=== PATIENT | female | born 1970 | race Caucasian/White ===

== ENCOUNTER 2019-07-21 11:39 | Emergency (ER) | payer MEDICAID, SELFPAY ==
[2019-07-21 11:40] VITALS: BP 168/97; PULSE 95; RESP 18; TEMP 36.5; O2SAT 100; BMI 35.3
--- NOTE | 2019-07-21 11:58 | US_ITS ---
STUDY: ULTRASOUND OF THE FEMALE PELVIS - COMPLETE REASON FOR EXAM: Female, 49 years old. Vaginal bleeding LMP: July 10, 2019. TECHNIQUE: Transvaginal TECHNICAL QUALITY: Adequate. COMPARISON: None. FINDINGS: The uterus is anteverted and is in a midline position. The uterus measures 8.4 cm x 5.7 cm x 5.0 cm. Normal uterine cervix. The endometrium measures 9 mm in thickness, and is hyperechoic. There is no demonstrated endometrial mass. There is heterogeneous appearance of the endometrium. A 9 mm x 5 mm x 6 mm echogenic region is seen within the myometrium. This may represent a small fibroid. I.U.D. - The patient does not have an I.U.D. The right ovary is visualized. The right ovary measures 3.8 cm x 1.5 cm x 2.4 cm. There is no right ovarian cyst or ovarian mass. There is no visualized right adnexal mass or complex lesion. There is normal arterial and normal venous vascularity. The left ovary is visualized. The left ovary measures 2.3 cm x 2 cm x 1.8 cm. There is no left ovarian cyst or ovarian mass. There is no visualized left adnexal mass or complex lesion. There is normal arterial and normal venous vascularity. There is no fluid in the cul-de-sac. Polycystic ovary disease: No. US/Transvaginal Non- IMPRESSION: Heterogeneous appearance of the uterine myometrium suggestive of fibroid change. 9 mm x 5 mm x 6 mm focal echogenic region is seen within the myometrium suggestive of a small fibroid. Electronically Signed: Darrel Pittman, at 12:53 EDT , Service support ,
--- NOTE | 2019-07-21 11:59 | ED.DCSUM_ITS ---
History of Present Illness Chief Complaint: Vag Bleeding Informant: Patient Onset: Weeks Context: Gradual Onset Current Severity: Moderate Maximum Severity: Moderate Narrative: Patient presents secondary to vaginal bleeding. She states she had a normal menstrual cycle that started a week or so ago. She bled normally for 4 days and then stopped for a day or 2. She then started spotting and then has had heavy bleeding since that time with clots. She states at worst she is changing her tampon every hour. She feels bloated and has some back pain. She has had a prior tubal ligation. She states her last Pap test was within the last several months. - Past Medical History (1) Hypertension Status: Chronic (2) Cardiac murmur Status: Chronic Past Medical History - Allergies and Home Meds Allergies/Adverse Reactions: Allergies No Known Allergies Allergy (Verified 07/21/19 11:40) Primary Care Physician: Chente Tapia MD [STAFF PHYSICIAN] - Doctors: [facility] RESIDENTIAL PEST CONTROL TECHNICIAN Prior records reviewed: Yes Smoking Status: Current some day smoker Review of Systems General: Denies: Chills, Fever Eyes: Denies: Visual changes - bilaterally ENT: Denies: Bilateral ear pain Cardiovascular: Denies: Chest pain Respiratory: Denies: Dyspnea, Cough Gastrointestinal: Reports: Abdominal pain. Denies: Nausea, Vomiting, Diarrhea Genitourinary: Denies: Dysuria Musculoskeletal: Reports: Back pain. Denies: Swelling, Extremity Pain Skin: Denies: Rash Neurological: Denies: Headache Hematologic: Denies: Easy bruising, Easy bleeding Allergy: Denies: Uticaria Physical Exam Vital Signs/Narrative: Vital Signs Temp Pulse Resp BP Pulse Ox 07/21/19 11:40 97.7 F L 95 18 168/97 H 100 Inital Vital Signs reviewed: Yes General: Well nourished, Well developed Head: Normocephalic Eyes: Perrl ENT: Moist mucous membranes Neck: Supple Cardiovascular: Regular rate, Regular rhythm Respiratory: No distress, CTA bilaterally Abdomen: Soft, Tender - Mild lower abdominal tenderness. No guarding or rebound., Hypoactive bowel sounds. Negative for: Guarding, Rebound tenderness Extremities: Nontender Skin: Normal color Neurological: Alert, Oriented x3 Psychological: Normal affect Diagnostic/Tx/Re-eval Impressions Transvaginal US 07/21/19 11:58 IMPRESSION: Heterogeneous appearance of the uterine myometrium suggestive of fibroid change. 9 mm x 5 mm x 6 mm focal echogenic region is seen within the myometrium suggestive of a small fibroid. Electronically Signed: Darrel Pittman, at 12:53 EDT , Service support , 07/21/19 11:58 Transvaginal Non- [US] Stat Laboratory Results 07/21/19 07/21/19 07/21/19 12:10 12:10 12:10 WBC 7.6 RBC 5.13 Hgb 15.3 H Hct 44.6 MCV 86.9 MCH 29.8 MCHC 34.3 RDW Std Deviation 42.3 RDW Coeff of Rosa 13.5 Plt Count 312 MPV 8.8 Immature Gran % (Auto) 0.300 Neut % (Auto) 63.4 Lymph % (Auto) 24.9 [place] % (Auto) 8.1 Eos % (Auto) 2.6 Baso % (Auto) 0.7 Absolute Neuts (auto) 4.8 Absolute Lymphs (auto) 1.90 Nucleated RBC % 0 Sodium 137 Potassium 3.9 Chloride 107 Carbon Dioxide 24.0 Anion Gap 6 BUN 10 Creatinine 0.78 Estim Creat Clear Calc 79.37 Est GFR (MDRD) Af Amer 101 Est GFR (MDRD) Non-Af 84 BUN/Creatinine Ratio 12.8 Glucose 87 Calcium 8.3 L Serum , Qual NEGATIVE - Medical Decision Making Patient was given IV fluids and Toradol. On repeat evaluation she is resting comfortably. Test results are discussed with her. I spoke with Dr. Caceres, on-call for [facility] HOSPITALIST PROGRAM DIRECTOR. I reviewed the findings of the patient's visit. Her office will call the patient the next few hours to set up a virtual visit for follow-up. Patient be given a prescription for naproxen. She is given a work note for today. ED Disposition - Plan for ED Patient: Disposition: Home or Assisted Living Diagnosis: Menorrhagia Instructions: ED Bleeding Menstrual Heavy Prescriptions: Naproxen [Naprosyn] 500 mg PO BID PRN PRN #20 tab PRN Reason: Pain Score 4-10/10 Transmission Status: Pending to [facility] Referrals: Chente Tapia MD [STAFF PHYSICIAN] - Johnie Caceres [STAFF PHYSICIAN] - 3-5 Days
[2019-07-21] MEDS: Ketorolac 30 MG/ML Syringe IV (12:08)
[2019-07-21] MEDS: 0.9% Normal Saline 1,000 ML 1000 ML IV (12:09)
[2019-07-21 12:20] LABS: Absolute Neutrophil Count 4.8 X10^3/uL (2.0-7.7); Basophil# 0.05 X10^3/uL; Basophil% 0.7 % (0-1); Eosinophils% 2.6 % (0-5); Hematocrit 44.6 % (37-47); Hemoglobin 15.3 g/dL (12.0-15.0); Lymphocyte % 24.9 % (19-41); Mean Corp Hgb Conc 34.3 g/dL (32-36); Mean Corpuscular Hgb 29.8 pg (27.0-32.0); Mean Corpuscular Volume 86.9 fL (81-99); Mean Platelet Vol. 8.8 fl (6.2-12.0); Monocyte# 0.62 X10^3/uL; Monocyte% 8.1 % (0-10); NRBC Flagged by Analyzer 0 % (0-5); Neutrophil # 4.84 X10^3/uL (2.7-7.7); Neutrophil % 63.4 % (47-70); Platelet Count 312 K/mm3 (150-450); RBC Distribution Width CV 13.5 % (11.6-14.6); RBC Distribution Width SD 42.3 fl (35.1-43.9); Red Blood Count 5.13 M/mm3 (4.2-5.4); White Blood Count 7.6 K/mm3 (4.4-11.0)
[2019-07-21 12:32] LABS: Internal QC Validated? YES +Cl - CLEAR BKGD; Pregnancy, Serum, hCG Quali. NEGATIVE Negative
[2019-07-21 12:33] LABS: Anion Gap 6 (5-15); BUN 10 mg/dL (7-18); BUN/Creat Ratio 12.8 RATIO (10-20); Calcium,Total 8.3 mg/dL (8.5-10.1); Chloride 107 mmol/L (98-107); Creatinine, Serum 0.78 mg/dL (0.55-1.02); EST Glomerular Filtration Rate 84 mL/min (>60); Est Glom Filt Rate - Afr Amer 101 mL/min (>60); Estimated Creatinine Clearance 79.37 ml/min; Glucose 87 mg/dL (74-106); Potassium 3.9 mmol/L (3.5-5.1); Sodium Level 137 mmol/L (136-145)
== END 2019-07-21 13:42 | disposition home or self-care (01) ==
PROVIDERS: Emergency Provider Emergency Medicine
DX: N92.0 Excessive and frequent menstruation with regular cycle (principal)
CPT/HCPCS: 76830; 80048; 84703; 85025; 96361; 96374; 99283; J7030; A4216

== ENCOUNTER 2021-09-20 19:52 | Emergency (ER) | payer MEDICAID, SELFPAY ==
[2021-09-20 19:52] VITALS: PULSE 142; RESP 18; TEMP 36.4; O2SAT 95; BMI 40.5
[2021-09-20] MEDS: HYDROmorphone 1 MG/ML Syringe IV (20:08)
[2021-09-20] MEDS: Ondansetron 4 MG/2 ML Vial IV (20:08)
--- NOTE | 2021-09-20 20:13 | EX.ED.VISEXT ---
HPI History of Present Illness HPI Narrative: Patient presents with a dog bite to her right wrist just prior to arrival, this was a pit bull. No other bites or injuries. Tetanus is not up-to-date Chief Complaint: Bite ROS ROS ED ROS Narrative Past medical history: none Medications: Reviewed Social history: Noncontributory Review of systems: Musculoskeletal: Right wrist dog bite as in HPI Skin: As in HPI Neurological: No weakness or paresthesias Hematologic: No easy bleeding or easy bruising PFSH PFSH Medical History no medical history Home Medications meloxicam [Mobic] 09/20/21 [History Last Taken Unknown] Allergy/AdvReac Type Severity Reaction Status Date / Time No Known Allergies Allergy Verified 09/20/21 19:55 Social History Smoking Status: Current some day smoker tobacco type: cigarettes EXAM Physical Exam Narrative Exam Narrative: Physical exam General: Patient is diaphoretic, she is very uncomfortable Head: Normocephalic, Atraumatic Neck: No C-spine tenderness Cardiovascular: Tachycardic, normal capillary refill distally Back: Nontender, Normal Inspection. Extremities: Right wrist shows a significant bite buzz, dorsally there is tissue loss of about 5 cm, volarly there are multiple lacerations presumably from the dog bite. There is flexor tendon strength in both the fingers and the wrist as well as extensor tendon however I cannot visualize the tendons fully. Distal sensation is intact and patient has capillary refill. Skin: As above Neurological: Normal strength and sensation Const Vital Signs: 09/20/21 19:52 Temperature 97.5 F L Temperature Source Temporal Pulse Rate 142 H Respiratory Rate 18 Pulse Ox 95 Oxygen Delivery Method Room Air MDM MDM MDM Narrative Medical decision making narrative: Patient received tetanus, Unasyn as well as analgesia. Due to the extensiveness of her bite I think she will need repair in the operating room. I called [facility] for transfer. Discharge Plan Triage Chief Complaint: Bite ED Provider: Ramone Zafar Dx/Rx/DC Orders Clinical Impression: Dog bite, Laceration of wrist Prescriptions: No Action meloxicam [Mobic] 15 mg Tablet RF: 0 Primary Care Provider: Care Physician,No Primary Referrals: Care Physician,No Primary [Primary Care Provider] - Disposition Disposition: Transfer to Another Type HCF
[2021-09-20] MEDS: Diphth,Pertuss(Acell),Tet Vac 0.5 ML Vial IM (20:20)
--- NOTE | 2021-09-20 20:40 | RAD_ITS ---
STUDY: XR Wrist Min 3 Views REASON FOR EXAM: Female, 51 years old. trauma pain Notes bite to right wrist from pitbull TECHNIQUE: XR Wrist Min 3 Views RIGHT COMPARISON: None FINDINGS: There are no acute findings of the visualized distal radius. There are no acute findings of the radiocarpal articulation. Normal distal radioulnar articulation. Normal carpal bones. Normal carpal articulations. There are no acute findings of the carpometacarpal articulation of the thumb. Normal second through fifth carpometacarpal articulations. There are no acute findings of the visualized metacarpal bones. Within the ulnar soft tissue, there fore bodies which may be bone and tooth fragments. There is soft tissue swelling consistent with a soft tissue injury. Comminuted fracture of the distal ulnar diaphysis. RAD/Wrist min 3 Views IMPRESSION: Within the ulnar soft tissue, there fore bodies which may be bone and tooth fragments. There is soft tissue swelling consistent with a soft tissue injury. Comminuted fracture of the distal ulnar diaphysis. Electronically Signed: Lawrence Brice MD at 21:13 EDT ,
[2021-09-20] MEDS: Lidocaine 1% (20 ml mdv) 20 ML Vial INFILT (21:27)
--- NOTE | 2021-09-20 21:28 | ED.RN ---
USED THE LIDOCAINE ON THE PT'S WOUNDS.
[2021-09-20 21:50] VITALS: BP 171/90; PULSE 74; RESP 18; O2SAT 96
[2021-09-20 22:45] VITALS: RESP 18
[2021-09-20] MEDS: oxyCODONE 5 MG Tablet PO (23:14)
[2021-09-20 23:31] VITALS: BP 168/72; PULSE 80; RESP 18; O2SAT 96
== END 2021-09-20 23:32 | disposition home or self-care (01) ==
PROVIDERS: Emergency Provider Emergency Medicine; Visit Provider Emergency Medicine
DX: S61.551A Open bite of right wrist, initial encounter (principal); S61.511A Laceration without foreign body of right wrist, initial encounter; F17.210 Nicotine dependence, cigarettes, uncomplicated; W54.0XXA Bitten by dog, initial encounter; Z23 Encounter for immunization
CPT/HCPCS: 12007; 73110; 90715; 96365; 96372; 96375; 99285; J7050; A4216; J0295; J2405

== ENCOUNTER 2021-10-31 16:45 | Emergency (ER) | payer MEDICAID, SELFPAY ==
[2021-10-31 16:46] VITALS: BP 137/120; PULSE 99; RESP 18; TEMP 36.8; O2SAT 96; BMI 33.3
--- NOTE | 2021-10-31 17:16 | ED.VIS.GI ---
HPI HPI - GI History of Present Illness Chief Complaint: Flank Pain Informant: patient Abdominal Pain/Flank Pain Onset: Today Context: Gradual Onset Timing: Continuous Quality: Sharp Location: RUQ, RLQ and Right Flank Worsened by: - (Lifting her right leg) Relieved by: Nothing Nausea/Vomiting/Emesis GI Symptom: Positive for Nausea and Vomiting Quality: Positive for Nonbilious; Negative for Blood streaks, Coffee ground or Hematemesis Diarrhea/Melena/Hematochezia GI Symptom: Negative for Diarrhea, Melena or Hematochezia Associated Symptoms Associated Symptoms: Negative for Dysuria, Frequency or Hematuria Narrative Narrative: Patient presents with right-sided abdominal pain that began today. Patient states it began gradually and has gotten worse throughout the day. Patient describes the pain as sharp. Patient states it is over the right side of her abdomen. Patient states it is worse when she lifts her right lower extremity. Patient admits to some nausea and vomiting. Patient denies any hematemesis or coffee-ground emesis. Patient denies any diarrhea, melena, or hematochezia. Patient denies any dysuria or hematuria. Patient admits to some subjective chills. [facility] Medical History (Updated 10/31/21 @ 19:[address] Lloyd Underwood DO) Cardiac murmur HTN (hypertension) Home Medications amoxicillin 500 mg-potassium clavulanate 125 mg tablet (Augmentin) 1 tab PO Q8H #21 tabs 09/20/21 [Rx Last Taken Unknown] meloxicam 15 mg tablet 09/20/21 [History Last Taken Unknown] oxycodone-acetaminophen 5 mg-325 mg tablet (Percocet) 1 tab PO Q6H PRN pain 3 days #12 tabs 09/20/21 [Rx Last Taken Unknown] hydrocodone-acetaminophen 5-325mg 5mg-325mg 1 tab PO Q6H PRN PRN Pain 3 days #10 TABLETS 10/31/21 [Rx Last Taken Unknown] Allergy/AdvReac Type Severity Reaction Status Date / Time No Known Allergies Allergy Verified 10/31/21 16:50 Surgical History (Updated 10/31/21 @ 17:[address] Lloyd Underwood DO) History of appendectomy History of section Social History Smoking Status: Current some day smoker tobacco type: cigarettes ROS ROS ED Constitutional Constitutional ED: Reports chills and subjective; Denies fever(s) Eyes Eyes: Denies blurry vision or change in vision ENT ENT ED: Denies rhinorrhea or sore throat Cardiovascular Cardiovascular: Denies chest pain or palpitations Respiratory/Chest Respiratory/Chest: Denies cough or dyspnea Gastrointestinal Gastrointestinal: Reports abdominal pain, nausea and vomiting; Denies diarrhea or melena Genitourinary Genitourinary ED: Denies dysuria or hematuria Musculoskeletal Musculoskeletal: Denies back pain or neck pain Integumentary Denies abscess or rash Neurologic Neurologic: Denies headache(s) or weakness Allergic/Immunologic Allergic/Immunologic ED: Denies mouth swelling or urticaria EXAM Physical Exam Const Vital Signs: 10/31/21 16:46 Temperature 98.2 F Temperature Source Oral Pulse Rate 99 Respiratory Rate 18 Blood Pressure 137/120 H Blood Pressure Mean 125 Pulse Ox 96 Oxygen Delivery Method Room Air Positive well nourished, well developed and obese General Appearance ED: well developed and NAD Nutritional Appearance: obese HEENT Reports moist mucous membranes Neck supple and no JVD Resp normal respiratory effort and clear to auscultation bilaterally Cardio regular rate, regular rhythm and no murmurs GI normal to inspection, nondistended, normoactive bowel sounds Palpation: soft and tender RLQ and RUQ Back/Spine General Back: CVA tenderness right Extremity normal to inspection General Extremety ED: Negative for edema or tenderness General Extremity: Negative for edema Neuro oriented x3, CN's II-XII intact bilaterally and no sensory deficits noted Sensorium / Orientation: alert Motor Exam: strength 5/5 throughout Psych mental status grossly normal Skin no rashes or lesions noted MDM MDM MDM Narrative Medical decision making narrative: Patient was given IV fluids, morphine, and Zofran. CBC shows a mild leukocytosis of 16.7. Comprehensive metabolic profile was essentially within normal limits. Urinalysis shows occult blood of 150 with 5-10 red blood cells. Leukocyte esterase was 25 with 5-10 white blood cells. There is 3+ bacteria. Urine culture was ordered. CT scan of the abdomen pelvis was obtained. There is a 4 mm right distal ureteral calculus with hydronephrosis and hydroureter. This was interpreted by the radiologist and reviewed by myself. Patient is feeling better on reevaluation. Patient was given a prescription for Mertzon. Patient was instructed to drink plenty of fluids. Patient was instructed to follow-up with her primary care physician in 5 to 7 days. Patient understood and was agreeable with the plan. All questions were answered. Lab Data Attestation: I reviewed the patient's lab results. Labs: Laboratory Results - last 24 hr 10/31/21 10/31/21 10/31/21 15:12 15:12 17:10 WBC 16.7 H RBC 5.12 Hgb 14.6 Hct 43.2 MCV 84.4 MCH 28.5 MCHC 33.8 RDW Std Deviation 41.1 RDW Coeff of Rosa 13.3 Plt Count 363 MPV 9.6 Immature Gran % (Auto) 0.400 Neut % (Auto) 80.5 H Lymph % (Auto) 11.1 L [place] % (Auto) 6.7 Eos % (Auto) 1.0 Baso % (Auto) 0.3 Absolute Neuts (auto) 13.4 H Absolute Lymphs (auto) 1.85 Nucleated RBC % 0 Sodium 136 Potassium 4.0 Chloride 105 Carbon Dioxide 25.0 Anion Gap 6 BUN 7 Creatinine 0.97 Estim Creat Clear Calc 62.44 Est GFR (MDRD) Af Amer 78 Est GFR (MDRD) Non-Af 65 BUN/Creatinine Ratio 7.2 L Glucose 120 H Calcium 9.2 Total Bilirubin 0.40 AST 29 ALT 31 Alkaline Phosphatase 95 Total Protein 7.6 Albumin 3.5 Globulin 4.1 Albumin/Globulin Ratio 0.9 Urine Color Yellow Urine Clarity Clear Urine pH 8.0 Ur Specific [place] 1.015 Urine Protein 30 H Urine Glucose (UA) Normal Urine Ketones Negative Urine Occult Blood 150 H Urine Nitrite Negative Urine Bilirubin Negative Urine Urobilinogen Normal Ur Leukocyte Esterase 25 H Urine RBC 5-10 SEEN Urine WBC 5-10 SEEN Ur Squamous Epith Cells 0-5 SEEN Urine Bacteria 3+ Urine Mucus 0 SEEN Radiography Diagnostic Testing: Clinical Impression(s) from Imaging Studies Abdomen/Pelvis CT 10/31/21 17:20 IMPRESSION: 4 mm right ureterovesical junction stone with moderate right hydronephrosis and perinephric inflammation. Steatosis and hepatomegaly. Aortic atherosclerosis with minimal infrarenal ectasia to 1.9 cm Right ovarian 1.5 cm cyst or cystic mass, possibly physiologic in a 51-year-old female. Consider 6 or 10 weeks follow-up ultrasound to ensure resolution. Electronically Signed: Noah Jeffrey MD at 18:12 EDT , Discharge Plan Triage Chief Complaint: Flank Pain Other Complaint: Abd Pain ED Provider: Lloyd Underwood Dx/Rx/DC Orders Clinical Impression: Calculus of distal right ureter, Hypertension Instructions: ED Kidney Stone w/ Colic Prescriptions: New hydrocodone-acetaminophen [hydrocodone-acetaminophen] 5-325 mg tablet 1 tab PO Q6H PRN PRN (Reason: Pain) 3 Days Qty: 10 0RF No Action meloxicam [Mobic] 15 mg Tablet oxycodone-acetaminophen [Percocet] 5-325 mg tablet 1 tab PO Q6H PRN (Reason: pain) 3 Days Qty: 12 0RF amoxicillin-pot clavulanate [Augmentin] 500-125 mg tablet 1 tab PO Q8H Qty: 21 0RF Primary Care Provider: Lobo Bajwa Referrals: Lobo Bajwa MD [Primary Care Provider] - 5-7 Days Laila Warren MD [STAFF PHYSICIAN] - 3-5 Days Care Physician,No Primary [NON-STAFF] - Disposition Disposition: Home, Self Care
--- NOTE | 2021-10-31 17:20 | CT_ITS ---
INDICATION: Right flank pain. PRIOR APPENDECTOMY EXAMINATION: CT ABDOMEN AND PELVIS WITHOUT CONTRAST - CT Abdomen And Pelvis W/O Contrast Injection TECHNIQUE: Helically acquired images were obtained of the abdomen and pelvis without oral or IV contrast. A radiation dose optimization technique was used for this scan. IV Contrast dosage and agent: None. Oral contrast: None. COMPARISON: None. FINDINGS: LOWER CHEST: Lateral left lower lobe 4.5 mm nodule. Lateral right lower lobe 3 mm nodule axial image 14. Borderline cardiomegaly. Moderate multivessel coronary atherosclerosis. LIVER: Hepatic steatosis. Hepatomegaly. No focal mass. GALLBLADDER AND BILIARY TREE: Cholecystectomy. No gallbladder distension or wall edema. No intra- or extrahepatic biliary ductal dilation. PANCREAS: No focal cystic or solid mass. SPLEEN: Normal size without focal cystic or solid mass. ADRENAL GLANDS: No nodules. KIDNEYS AND URETERS: Moderate hydronephrosis and hydroureter with 4mm stone at the ureterovesical junction. No other nephrolithiasis. Moderate right perinephric and periureteral inflammatory stranding. No left renal stone hydronephrosis or perinephric inflammation. Unremarkable left ureter. Unremarkable bladder. PERITONEUM: No ascites or free air. No other fluid collection. BOWEL: Normal appendix. No stomach or bowel distension. Distal colonic diverticulosis without evidence of diverticulitis. LYMPH NODES: No enlarged mesenteric or retroperitoneal lymph nodes. VESSELS: Aortic atherosclerosis without ectasia. URINARY BLADDER: Unremarkable. REPRODUCTIVE ORGANS: Unremarkable uterus. Mammogram 1.5 cm cyst or cystic mass. Unremarkable left ovary. ABDOMINAL WALL: No discrete abdominal or pelvic wall hernia. BONES: No lytic or blastic abnormality. CT/Abdomen/Pelvis without Cont IMPRESSION: 4 mm right ureterovesical junction stone with moderate right hydronephrosis and perinephric inflammation. Steatosis and hepatomegaly. Aortic atherosclerosis with minimal infrarenal ectasia to 1.9 cm Right ovarian 1.5 cm cyst or cystic mass, possibly physiologic in a 51-year-old female. Consider 6 or 10 weeks follow-up ultrasound to ensure resolution. Electronically Signed: Noah Jeffrey MD at 18:12 EDT ,
[2021-10-31] MEDS: Ondansetron 4 MG/2 ML Vial IV (17:27)
[2021-10-31] MEDS: 0.9% Normal Saline 1,000 ML 1000 ML IV (17:27)
[2021-10-31] MEDS: Morphine 4 MG/ML Syringe IV (17:27)
[2021-10-31 17:39] LABS: Mucous, Urine 0 SEEN /hpf (<or=2+)
[2021-10-31 17:40] LABS: Absolute Lymphocyte Count 1.85 X10^3/uL (0.83-4.51); Absolute Neutrophil Count 13.4 X10^3/uL (2.0-7.7); Basophil# 0.05 X10^3/uL; Basophil% 0.3 % (0-1); Eosinophil# 0.17 X10^3/uL; Hematocrit 43.2 % (37-47); Hemoglobin 14.6 g/dL (12.0-15.0); Lymphocyte # 1.85 X10^3/ul (0.83-4.51); Lymphocyte % 11.1 % (19-41); Mean Corp Hgb Conc 33.8 g/dL (32-36); Mean Corpuscular Hgb 28.5 pg (27.0-32.0); Mean Corpuscular Volume 84.4 fL (81-99); Mean Platelet Vol. 9.6 fl (6.2-12.0); Monocyte# 1.12 X10^3/uL; Monocyte% 6.7 % (0-10); NRBC Flagged by Analyzer 0 % (0-5); Neutrophil % 80.5 % (47-70); Platelet Count 363 K/mm3 (150-450); RBC Distribution Width CV 13.3 % (11.6-14.6); RBC Distribution Width SD 41.1 fl (35.1-43.9); Red Blood Count 5.12 M/mm3 (4.2-5.4); White Blood Count 16.7 K/mm3 (4.4-11.0)
[2021-10-31 17:41] LABS: Color, Urine Yellow (Yellow); Glucose, Dipstick Normal (Normal); Ketone-Dipstick Negative (Negative); Leukocyte Esterase-Dipstick 25 /ul (Negative); Nitrite-Dipstick Negative (Negative); Occult Blood-Urine 150 /ul (Negative); Protein-Dipstick 30 mg/dl (Negative); Specific Gravity, Urine 1.015 (1.002-1.030); Urine Bilirubin Dipstick Negative (Negative); Urine Clarity Clear (Clear); Urine Urobilinogen Normal (Normal)
[2021-10-31 17:52] LABS: ALB/GLOB Ratio 0.9 RATIO (0.9-2.4); AST(SGOT) 29 U/L (15-37); Alanine Aminotransfer ALT/SGPT 31 U/L (13-56); Albumin, Serum 3.5 g/dL (3.2-5.0); Alkaline Phosphatase 95 U/L (45-117); Anion Gap 6 (5-15); BUN 7 mg/dL (7-18); BUN/Creat Ratio 7.2 RATIO (10-20); Calcium,Total 9.2 mg/dL (8.5-10.1); Chloride 105 mmol/L (98-107); Creatinine, Serum 0.97 mg/dL (0.55-1.02); EST Glomerular Filtration Rate 65 mL/min (>60); Est Glom Filt Rate - Afr Amer 78 mL/min (>60); Estimated Creatinine Clearance 62.44 ml/min; Globulin 4.1 g/dL (2.2-4.2); Glucose 120 mg/dL (74-106); Protein, Total 7.6 g/dL (6.4-8.2); Sodium Level 136 mmol/L (136-145)
[2021-10-31 17:57] LABS: White Blood Cells 5-10 SEEN /hpf (0-5)
[2021-10-31 17:58] LABS: Bacteria 3+ /hpf (None Seen); Red Blood Cells-Urine 5-10 SEEN /hpf (0-5); Squamous Epithelial Cells - UA 0-5 SEEN /hpf (5-10)
== END 2021-10-31 19:39 | disposition home or self-care (01) ==
PROVIDERS: Emergency Provider Emergency Medicine; PCP Family Medicine; Visit Provider Emergency Medicine
DX: N20.1 Calculus of ureter (principal); I10 Essential (primary) hypertension; F17.210 Nicotine dependence, cigarettes, uncomplicated; E66.9 Obesity, unspecified
CPT/HCPCS: 74176; 80053; 81001; 85025; 96361; 96374; 96375; 99283; J7030; A4216; J2405

== ENCOUNTER 2022-04-25 12:26 | Emergency (ER) | payer MEDICAID, SELFPAY ==
[2022-04-25 12:28] VITALS: BP 163/93; PULSE 133; RESP 18; TEMP 36.6; O2SAT 100; BMI 39.9
--- NOTE | 2022-04-25 15:40 | EX.ED.DYSGE1 ---
HPI History of Present Illness Chief Complaint: Wound Informant: patient Onset/Context/Timing Onset: Yesterday Current Severity: Moderate Maximum Severity: Moderate Narrative Narrative: Patient presents secondary to abscess to left labia. Patient states that she thought she had an ingrown hair or small pimple. Over the last 24 hours the area has become more painful and firm to touch. She believes she might of had a fever at home but did not measure it. She is not noted any drainage from the area. [facility] Medical History Cardiac murmur HTN (hypertension) Home Medications amoxicillin 500 mg-potassium clavulanate 125 mg tablet (Augmentin) 1 tab PO Q8H #21 tabs 09/20/21 [Rx Last Taken Unknown] meloxicam 15 mg tablet 09/20/21 [History Last Taken Unknown] oxycodone-acetaminophen 5 mg-325 mg tablet (Percocet) 1 tab PO Q6H PRN pain 3 days #12 tabs 09/20/21 [Rx Last Taken Unknown] hydrocodone-acetaminophen 5-325mg 5mg-325mg 1 tab PO Q6H PRN PRN Pain 3 days #10 TABLETS 10/31/21 [Rx Last Taken Unknown] cephalexin 500 mg capsule 500 mg PO Q6 #40 caps 04/25/22 [Rx Last Taken Unknown] hydrocodone-acetaminophen 5-325mg 5mg-325mg 1 tab PO Q6H PRN pain 3 days #10 tabs 04/25/22 [Rx Last Taken Unknown] sulfamethoxazole 800 mg-trimethoprim 160 mg tablet (Bactrim DS) 1 tab PO BID #20 tabs 04/25/22 [Rx Last Taken Unknown] Allergy/AdvReac Type Severity Reaction Status Date / Time No Known Allergies Allergy Verified 04/25/22 12:28 Surgical History History of appendectomy History of section Social History Smoking Status: Current some day smoker tobacco type: cigarettes ROS ROS ED Constitutional Constitutional ED: Reports fever(s) and subjective; Denies chills Eyes Eyes: Denies change in vision or discharge from eye(s) ENT ENT ED: Denies discharge from eye(s), rhinorrhea or sore throat Cardiovascular Cardiovascular: Denies chest pain or palpitations Respiratory/Chest Respiratory/Chest: Denies cough or dyspnea Gastrointestinal Gastrointestinal: Denies abdominal pain, diarrhea, nausea or vomiting Genitourinary Genitourinary ED: Denies difficulty urinating or dysuria Musculoskeletal Musculoskeletal: Denies back pain or extremity pain Integumentary Reports abscess; Denies Abrasions or rash Neurologic Neurologic: Denies headache(s) or weakness Psychiatric Psychiatric: Denies anxiety or depression Allergic/Immunologic Allergic/Immunologic ED: Denies lip swelling or urticaria EXAM Physical Exam Const Vital Signs: 04/25/22 12:28 Temperature 97.9 F Temperature Source Temporal Pulse Rate 133 H Respiratory Rate 18 Blood Pressure 163/93 H Blood Pressure Mean 116 Pulse Ox 100 Oxygen Delivery Method Room Air Positive well nourished and well developed General Appearance ED: well developed HEENT Reports normocephalic and head/scalp atraumatic Eyes PERRL and EOMs intact bilaterally Neck supple Chest Wall inspection of chest normal and palpation of chest normal Resp normal respiratory effort and clear to auscultation bilaterally Cardio regular rate and regular rhythm GI normal to inspection, nondistended, normoactive bowel sounds Palpation: soft Narrative: 4 x 2 cm firm abscess to the left labia majora. No cellulitis. No fluctuance noted. Extremity normal to inspection Neuro oriented x3 and no sensory deficits noted Sensorium / Orientation: alert Motor Exam: strength 5/5 throughout Psych mental status grossly normal Skin Skin Narrative: Abscess as noted above. MDM MDM MDM Narrative Medical decision making narrative: Discussed with the patient at this time there is no fluctuance. I do not know that we are to get much drainage if we open the area. She will continue sitz bath as and we will treat her with Bactrim and Keflex. I will give her [place] for pain control. She was advised that over the next day or 2 this may soften up to the point where it would need opened and drained. She voices understanding and agreement. Discharge Plan Triage Chief Complaint: Wound ED Provider: Myra Romano Dx/Rx/DC Orders Clinical Impression: Cutaneous abscess Instructions: ED Abscess Antibiotic Treatment Only Prescriptions: New sulfamethoxazole-trimethoprim [Bactrim DS] 800-160 mg tablet 1 tab PO BID Qty: 20 0RF hydrocodone-acetaminophen 5-325 mg tablet 1 tab PO Q6H PRN (Reason: pain) 3 Days Qty: 10 0RF cephalexin 500 mg capsule 500 mg PO Q6 Qty: 40 0RF No Action meloxicam [Mobic] 15 mg Tablet oxycodone-acetaminophen [Percocet] 5-325 mg tablet 1 tab PO Q6H PRN (Reason: pain) 3 Days Qty: 12 0RF amoxicillin-pot clavulanate [Augmentin] 500-125 mg tablet 1 tab PO Q8H Qty: 21 0RF hydrocodone-acetaminophen [hydrocodone-acetaminophen] 5-325 mg tablet 1 tab PO Q6H PRN PRN (Reason: Pain) 3 Days Qty: 10 0RF Primary Care Provider: Lobo Bajwa Referrals: Lobo Bajwa MD [Primary Care Provider] - 1 Week if not improving Disposition Disposition: Home, Self Care
[2022-04-25] MEDS: Cephalexin 250 MG Capsule 500 MG PO (15:59)
[2022-04-25] MEDS: Smz/Tmp Ds Tablet 1 TABLET PO (15:59)
[2022-04-25] MEDS: HYDROcodone Bitartrate/Apap 5/325 Tablet PO (15:59)
[2022-04-25 16:03] VITALS: BP 148/82; PULSE 95; RESP 15; O2SAT 98
== END 2022-04-25 16:06 | disposition home or self-care (01) ==
PROVIDERS: Emergency Provider Emergency Medicine; PCP Family Medicine; Visit Provider Emergency Medicine
DX: N76.4 Abscess of vulva (principal); F17.210 Nicotine dependence, cigarettes, uncomplicated; I10 Essential (primary) hypertension
CPT/HCPCS: 99283

== ENCOUNTER 2022-04-28 19:57 | Emergency (ER) | payer MEDICAID, SELFPAY ==
[2022-04-28 19:58] VITALS: BP 146/93; PULSE 108; RESP 18; TEMP 36.2; O2SAT 98; BMI 31.6
--- NOTE | 2022-04-28 20:21 | EX.ED.DYSGE1 ---
HPI History of Present Illness Chief Complaint: Abscess Narrative Narrative: 51-year-old female presents with left labial pain from an abscess. She states she was seen in the emergency department approximately 3 days ago where there was no area to drain and her abscess in her groin was not lanced. She was placed on antibiotics in the form of cephalexin and Bactrim, and given [place] for pain. She thinks the area might of opened up but states that her primary care physician told her to return to the hospital to see if any more fluid could be removed, or to leanna it more.. She complained of intermittent fevers previously but none today. She denies any nausea or vomiting, no other symptoms except for pain especially when she walks. [facility] Medical History Cardiac murmur HTN (hypertension) Home Medications amoxicillin 500 mg-potassium clavulanate 125 mg tablet (Augmentin) 1 tab PO Q8H #21 tabs 09/20/21 [Rx Last Taken Unknown] meloxicam 15 mg tablet 09/20/21 [History Last Taken Unknown] oxycodone-acetaminophen 5 mg-325 mg tablet (Percocet) 1 tab PO Q6H PRN pain 3 days #12 tabs 09/20/21 [Rx Last Taken Unknown] hydrocodone-acetaminophen 5-325mg 5mg-325mg 1 tab PO Q6H PRN PRN Pain 3 days #10 TABLETS 10/31/21 [Rx Last Taken Unknown] cephalexin 500 mg capsule 500 mg PO Q6 #40 caps 04/25/22 [Rx Last Taken Unknown] hydrocodone-acetaminophen 5-325mg 5mg-325mg 1 tab PO Q6H PRN pain 3 days #10 tabs 04/25/22 [Rx Last Taken Unknown] sulfamethoxazole 800 mg-trimethoprim 160 mg tablet (Bactrim DS) 1 tab PO BID #20 tabs 04/25/22 [Rx Last Taken Unknown] hydrocodone-acetaminophen 5-325mg 5mg-325mg 1 tab PO Q6H PRN pain 3 days #12 tabs 04/28/22 [Rx Last Taken Unknown] Allergy/AdvReac Type Severity Reaction Status Date / Time No Known Allergies Allergy Verified 04/28/22 20:03 Surgical History History of appendectomy History of section Social History Smoking Status: Current some day smoker tobacco type: cigarettes ROS ROS ED ROS Narrative Constitutional: No fever, no chills. HEENT: No sore throat. No neck pain. No loss of vision. No rhinorrhea. Cardiovascular: No chest pain. No palpitations. No pedal edema. Respiratory: No cough, no shortness of breath. Abdominal: No abdominal pain. No nausea. No vomiting. Genitourinary: No dysuria. No hematuria. Firm area left labia. Reported drainage. Musculoskeletal: No myalgias. No arthralgias. Neurologic: No headaches. No dizziness. No lightheadedness. Skin: No rash. No change in color. Psychiatric: No depression. No anxiety. EXAM Physical Exam Narrative Exam Narrative: Afebrile. Vital signs noted. HEENT: Normocephalic. Atraumatic. PERRL, EOMI. Neck soft and supple. No point tenderness or step off. Cardiovascular: Regular rate and rhythm. No murmurs, rubs, or gallops appreciated. Respiratory: No tachypnea. Lungs clear to auscultation bilaterally. Gastrointestinal: Abdomen soft, obese nontender, with normoactive bowel sounds. No rebound or guarding. Genitourinary: Chaperoned external pelvic examination did reveal indurated tissue throughout the left labia majora. There is a small area that is open that is consistent with draining abscess. No crepitance. No noted erythema. Neurological: Awake. Alert. Nonfocal, nonlateralizing. Skin: No rash. Normal color. No pallor. Musculoskeletal: No pedal edema. Full range of motion extremities. Const Vital Signs: 04/28/22 19:58 Temperature 97.1 F L Temperature Source Temporal Pulse Rate 108 H Respiratory Rate 18 Blood Pressure 146/93 H Blood Pressure Mean 110 Pulse Ox 98 Oxygen Delivery Method Room Air MDM MDM MDM Narrative Medical decision making narrative: Patient was consented for further I&D. The area is already opened however, and she was informed that with extension of the opening that there may only be bleeding present. She was informed of the risk of continued infection and scarring and acknowledges an understanding. Lidocaine 1% was used as a local anesthetic. #11 blade was used to make a small extension of this area with a small amount of blood returned. Area was deloculated, and there was no purulent material returned, only a minimal amount of blood. She tolerated procedure adequately. At this point in time, she will continue her antibiotics. She will be given a prescription for 3 days worth of continued [place] tablets. She was told that it will take time for the indurated area to heal and that she may have continued pain. As she is almost out of [place] tablets because she was seen 3 days ago her prescription was refilled. She was given a note to be off work today and tomorrow. I do not feel that she is currently septic. She is afebrile and nontoxic-appearing. I do not feel that laboratory work is indicated or CT imaging currently as her exam is consistent with a draining, healing abscess. I am not concerned about necrotizing fasciitis. There is no external erythema. I feel she be discharged safely home to follow-up with her primary care physician. Return instructions to the emergency department were reviewed. Disposition is discharged home in stable condition. Discharge Plan Triage Chief Complaint: Abscess ED Provider: Hernan Peck Dx/Rx/DC Orders Clinical Impression: Abscess of left genital labia, Cutaneous abscess Instructions: ED Abscess Incision And Drainage Prescriptions: New hydrocodone-acetaminophen 5-325 mg tablet 1 tab PO Q6H PRN (Reason: pain) 3 Days Qty: 12 0RF No Action meloxicam [Mobic] 15 mg Tablet oxycodone-acetaminophen [Percocet] 5-325 mg tablet 1 tab PO Q6H PRN (Reason: pain) 3 Days Qty: 12 0RF amoxicillin-pot clavulanate [Augmentin] 500-125 mg tablet 1 tab PO Q8H Qty: 21 0RF hydrocodone-acetaminophen [hydrocodone-acetaminophen] 5-325 mg tablet 1 tab PO Q6H PRN PRN (Reason: Pain) 3 Days Qty: 10 0RF sulfamethoxazole-trimethoprim [Bactrim DS] 800-160 mg tablet 1 tab PO BID Qty: 20 0RF hydrocodone-acetaminophen 5-325 mg tablet 1 tab PO Q6H PRN (Reason: pain) 3 Days Qty: 10 0RF cephalexin 500 mg capsule 500 mg PO Q6 Qty: 40 0RF Stand Alone Forms: ED Work / School Excuse Primary Care Provider: Lobo Bajwa Referrals: Lobo Bajwa MD [Primary Care Provider] - 2 Days for wound check Disposition Disposition: Home, Self Care
[2022-04-28 20:43] VITALS: PULSE 78; RESP 17; O2SAT 99
[2022-04-28] MEDS: Lidocaine 1% (20 ml mdv) 20 ML Vial INFILT (20:52)
== END 2022-04-28 20:56 | disposition home or self-care (01) ==
PROVIDERS: Emergency Provider Emergency Medicine; PCP Family Medicine; Visit Provider Emergency Medicine
DX: N76.4 Abscess of vulva (principal); F17.210 Nicotine dependence, cigarettes, uncomplicated
CPT/HCPCS: 10060; 99282

== ENCOUNTER → 2024-04-23 | Outpatient (CLI) | payer MEDICAID, SELFPAY ==
[2024-04-23] MEDS: Lidocaine 2% (5ml sdv) 5 ML VIAL.MPF INFILT (13:00)
[2024-04-23] MEDS: Bupivacaine 0.5% PF 10 ML VIAL INTRAARTIC (13:00)
--- NOTE | 2024-04-23 14:14 | PCM.OPRPT ---
Problems Associated Problem List Diagnoses (1) Osteoarthritis of left hip: Multi Select Codes Radiology Rad Xray Procedures: 70044 Inj Asp major Joint - Hip, Knee and 29185-91 Fluoroscopic guidance for needle placement Operative Report (Standard) Operative Information Date of Procedure: 04/23/24 Pre-Operative Diagnosis: LEFT HIP OSTEOARTHRITIS Post-Operative Diagnosis: LEFT HIP OSTEOARTHRITIS Surgery/Procedure Performed: LEFT HIP FLUOROSCOPIC GUIDED INJECTION behavioral health assistant: No Type of Anesthesia: Local Procedure Start Time: 13:00 Procedure Stop Time: 13:15 Select all DRAINS/GRAFTS/IMPLANTS that apply: None Estimated Blood Loss: minimal Specimen collected: No Description of surgery: PROCEDURE: Fluoroscopic Guided left hip injection ORDERING PROVIDER: Dr. Donavon Loaiza INDICATION: Female, 53 years old. Left hip osteoarthritis. PROVIDER: MAR Foster FLUOROSCOPY TIME (if supplied): 0 minutes/50 seconds. 7.8 mGy CONSENT: The risks, benefits, and alternatives to the procedure were explained to the patient. The specific risks of bleeding, infection, and neurovascular injury were detailed and accepted. Witnessed informed consent was obtained. TECHNIQUE: The left hip access site was prepped with chlorhexidine and draped in sterile fashion. 2% Lidocaine was administered subcutaneously for local anesthesia. A 22-gauge spinal needle was positioned under radiographic fluoroscopic localization. Approximately 2 cc of Isovue 300 instilled for localization purposes. Medication was then injected. MEDICATIONS: 80 mg of Kenalog and 3 ml of 0.5% bupivacaine. The spinal needle was removed, and a dressing was applied. The patient tolerated the procedure well without any immediate complications. IMPRESSION: Successful fluoroscopic guided left hip injection. Surgical Findings: Successful fluoroscopic guided left hip injection Complications Complications: No
== END | disposition home or self-care (01) ==
LOC: RAD 12:56
PROVIDERS: PCP Family Medicine; Referring Provider Orthopaedic Surgery; Visit Provider Orthopaedic Surgery
DX: M16.12 Unilateral primary osteoarthritis, left hip (principal); M25.552 Pain in left hip; G89.29 Other chronic pain
CPT/HCPCS: 20610; 77002; Q9967

== ENCOUNTER 2024-06-03 21:06 | Emergency (ER) | payer MEDICAID, SELFPAY ==
[2024-06-03 21:07] VITALS: BP 163/132; PULSE 141; RESP 18; TEMP 36.6; O2SAT 95; BMI 38.9
--- NOTE | 2024-06-03 21:24 | EKG12_ITS ---
Test Reason : CP Blood Pressure : */* mmHG Vent. Rate : 129 BPM Atrial Rate : 129 BPM P-R Int : 152 ms QRS Dur : 60 ms QT Int : 284 ms P-R-T Axes : 66 21 46 degrees QTcB Int : 416 ms Sinus tachycardia Low voltage QRS Septal infarct , age undetermined Abnormal ECG Confirmed by IRON BRIGGS, REJI ([id number]), editor managing newspaper PEBBLES FERREIRA ([id number]) on 06/05/2024 12:59:14 PM Referred By: YARA Confirmed By: REJI PERDUE MD
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
[2024-06-03 21:39] LABS: Absolute Lymphocyte Count 2.58 X10^3/uL (0.83-4.51); Absolute Neutrophil Count 6.3 X10^3/uL (2.0-7.7); Basophil# 0.07 X10^3/uL; Basophil% 0.7 % (0-1); Eosinophil# 0.17 X10^3/uL; Eosinophils% 1.7 % (0-5); Hematocrit 43.6 % (37-47); Hemoglobin 14.8 g/dL (12.0-15.0); Lymphocyte # 2.58 X10^3/ul (0.83-4.51); Lymphocyte % 26.1 % (19-41); Mean Corp Hgb Conc 33.9 g/dL (32-36); Mean Corpuscular Hgb 29.5 pg (27.0-32.0); Monocyte# 0.78 X10^3/uL; Monocyte% 7.9 % (0-10); NRBC Flagged by Analyzer 0 % (0-5); Neutrophil # 6.26 X10^3/uL (2.7-7.7); Neutrophil % 63.4 % (47-70); Platelet Count 320 K/mm3 (150-450); RBC Distribution Width CV 13.3 % (11.6-14.6); RBC Distribution Width SD 42.5 fl (35.1-43.9); Red Blood Count 5.01 M/mm3 (4.2-5.4); White Blood Count 9.9 K/mm3 (4.4-11.0)
[2024-06-03] MEDS: Ketorolac 30 MG/ML Syringe IV (21:42)
--- NOTE | 2024-06-03 21:50 | RAD_ITS ---
PROCEDURE: CHEST 1 VIEW (PORTABLE) REASON FOR EXAM: Chest pain. TECHNIQUE: Single frontal view of the chest is obtained. COMPARISON: None. FINDINGS: Cardiac size and pulmonary vasculature are within normal limits. No consolidation, pleural effusion, or pneumothorax is present. Degenerative changes are identified. RAD/Chest 1 View (Portable) IMPRESSION: No acute cardiopulmonary process. Reading Location: [facility]
[2024-06-03] MEDS: Lorazepam 2 MG/ML WCH Syringe 1 MG IV (21:55)
[2024-06-03 22:06] LABS: Anion Gap 9 (5-15); BUN 21 mg/dL (7-18); BUN/Creat Ratio 16.2 RATIO (10-20); Chloride 108 mmol/L (98-107); EST Glomerular Filtration Rate 46 mL/min (>60); Est Glom Filt Rate - Afr Amer 55 mL/min (>60); Estimated Creatinine Clearance 61.26 ml/min; Glucose 141 mg/dL (74-106); Potassium 3.7 mmol/L (3.5-5.1); Sodium Level 141 mmol/L (136-145); Troponin-I HS 34 pg/mL (3.0-54.0)
[2024-06-03 22:07] VITALS: BP 123/73; PULSE 104; RESP 24; O2SAT 96
[2024-06-03 22:22] VITALS: BP 123/73; PULSE 99; RESP 15; TEMP 36.6; O2SAT 99
== END 2024-06-03 22:28 | disposition home or self-care (01) ==
PROVIDERS: Emergency Provider Emergency Medicine; PCP Family Medicine; Visit Provider Emergency Medicine
DX: F41.1 Generalized anxiety disorder (principal); R07.9 Chest pain, unspecified; R00.0 Tachycardia, unspecified; I10 Essential (primary) hypertension; I35.0 Nonrheumatic aortic (valve) stenosis; E66.9 Obesity, unspecified; F17.290 Nicotine dependence, other tobacco product, uncomplicated
CPT/HCPCS: 71045; 80048; 84484; 85025; 93005; 96374; 96375; 99284; A4216

== ENCOUNTER → 2024-10-08 | Outpatient (CLI) | payer MEDICAID, SELFPAY ==
--- NOTE | 2024-10-08 10:41 | CR.HP_ITS ---
CR - History & Physical General Arrival date:: 10/08/24 Arrival time:: 10:42 Date of Referral:: 09/10/24 Date of CR Evaluation:: 10/08/24 Referring Physician: Dr. Vargas Primary Diagnosis: Valve repair History of Present Cardiac Event Onset Date Heart valve replacement or repair:: Yes (onset 08/26/24) Medications Ambulatory Orders ?Medication ?Instructions ?Recorded amoxicillin 500 mg-potassium 1 tab PO Q8H #21 tabs 05/13 clavulanate 125 mg tablet (Augmentin) meloxicam 15 mg tablet 09/20/21 oxycodone-acetaminophen 5 mg-325 1 tab PO Q6H PRN pain 3 days #12 09/20/21 mg tablet (Percocet) tabs hydrocodone-acetaminophen 5-325mg 1 tab PO Q6H PRN PRN Pain 3 days 10/31/21 5mg-325mg #10 TABLETS cephalexin 500 mg capsule 500 mg PO Q6 #40 caps hydrocodone-acetaminophen 5-325mg 1 tab PO Q6H PRN jose de jesus n 3 days #10 04/25/22 5mg-325mg tabs sulfamethoxazole 800 1 tab PO BID #20 tabs mg-trimethoprim 160 mg tablet (Bactrim DS) hydrocodone-acetaminophen 5-325mg 1 tab PO Q6H PRN jose de jesus n 3 days #12 04/28/22 5mg-325mg tabs Allergies Allergies
--- NOTE | 2024-10-08 10:41 | PCM.CR.HP2 ---
CR - History & Physical General Arrival date:: 10/08/24 Arrival time:: 10:42 Date of Referral:: 09/10/24 Date of CR Evaluation:: 10/08/24 Referring Physician: Dr. Vargas Primary Diagnosis: Valve repair History of Present Cardiac Event Onset Date Heart valve replacement or repair:: Yes (onset 08/26/24) Medications Ambulatory Orders ?Medication ?Instructions ?Recorded amoxicillin 500 mg-potassium 1 tab PO Q8H #21 tabs 09/20/21 clavulanate 125 mg tablet (Augmentin) meloxicam 15 mg tablet 09/20/21 oxycodone-acetaminophen 5 mg-325 1 tab PO Q6H PRN pain 3 days #12 09/20/21 mg tablet (Percocet) tabs hydrocodone-acetaminophen 5-325mg 1 tab PO Q6H PRN PRN Pain 3 days 10/31/21 5mg-325mg #10 TABLETS cephalexin 500 mg capsule 500 mg PO Q6 #40 caps 04/25/22 hydrocodone-acetaminophen 5-325mg 1 tab PO Q6H PRN pain 3 days #10 04/25/22 5mg-325mg tabs sulfamethoxazole 800 1 tab PO BID #20 tabs 04/25/22 mg-trimethoprim 160 mg tablet (Bactrim DS) hydrocodone-acetaminophen 5-325mg 1 tab PO Q6H PRN pain 3 days #12 04/28/22 5mg-325mg tabs Allergies Allergies No Known Allergies Allergy (Verified 06/03/24 21:09) Sleep Disorder Evaluation Hx of Sleep Apnea: No Do you snore loudly (louder than talking or can be heard through closed doors)?: No Do you often feel tired/ fatigued/ sleepy during daytime?: No Has anyone observed you stop breathing during sleep?: No History of Hypertension (for STOP score): Yes STOP Results: Negative Advanced Directives Advanced Directives Do you have a Healthcare Power of Director Of Golf?: No Living Will: No Advance Directives Information Provided: No Advance Directives on File: No DNR Order?:: No Past Medical History Covid-19 Screening Physicial Symptoms Other Clinical Concerns Exposure Risk Pertinent Comorbidities Has a serious heart condition:: Yes Past Medical Illness Medical History Aortic stenosis Cardiac murmur HTN (hypertension) Past Surgical History Surgical History History of appendectomy History of section Social History Smoking History Smoking Status: Former smoker Years Smokin Packs Smoked per Day: 1 (Pt stopped this august.) Alcohol Use Alcohol Usage: No Occupation Occupation (List type of work in comments):: Unemployed (disability) Social Environment Status Marital Status: Current Living Arrangements Living Environment:: Alone Children How many children do you have?: 2 Do any of your children live nearby?: Yes Safety Do you feel safe in your surroundings?: Yes Assistance Do you need any assistance at home?: no Review of Systems Review of Systems Hints Review of Present Symptoms: Reports Shortness of Breath with Exertion, Operative Discomfort, Appetite - Normal, Appetite - Special Diet and Sleep - Normal; Denies Shortness of Breath at Rest, PVD, Angina, Wound Healing, Dizziness/Lightheadedness, Fatigue, Heart Arrhythmia/Irregularities or Sexual Changes Pain Is Patient Pain Free?: Yes Risk Factor Assessment Chief Complaint Chief Complaint: Valve repair Vital Signs Pulse Ox: 97 Blood Pressure: 138/80 Pulse Pulse Rate: 71 Pulse Rhythm: Regular Hypertension How long have you been treated?: unsure Blood Pressure Sitting - Right Arm: 138/80 Obesity Height: 5 ft 5 in Weight:: 235 lb Weight in Pounds: 235.0 lbs Body Mass Index (BMI): 39.1 Nutritional Referral for Obesity: No Physical Inactivity Physical Inactivity: None Risk Stratification Risk Guidelines: Moderate Risk: Risk Factor for Dyslipidemia, Risk Factor for Diabetes and Risk Factor for Sedentary Lifestyle and Highest Risk: Risk Factor for Smoking, Risk Factor for Obesity, Risk Factor for Hypertension and Risk Factor for Depression For Smoking Smoking Risk Guidelines For Dyslipidemia Dyslipidemia Risk Guidelines For Diabetes Mellitus Diabetes Risk Guidelines For Obesity/Overweight Obesity/Overweight Risk Guidelines For Hypertension Hypertension Risk Guidelines For Sedentary Lifestyle Sedentary Lifestyle Risk Guidelines For Depression Depression Risk Guidelines Motivation Motivation to Participate On a scale of 1 to 10, how prepared are you to commit to attending program?: 10 What do you see as barriers to successfully being able to complete the program?: nothing Are there issues you are dealing with that will interfere with completing the program?: no Do you have a spouse or signficant other, family or friends who will help support you to complete the program?: yes
--- NOTE | 2024-10-08 10:46 | PCM.CR.ITP ---
Diagnosis General Information Admitting Diagnosis: valve repair Personal Learning Style:: Audio/Visual Barriers to Learning: No Barriers Stage of change r/t lifestyle modifications:: Contemplation Gave educational material for:: Treating Heart Disease, How The Heart Works, What it means to have Heart Disease, How Coronary Artery Disease is Diagnosed, Heart Procedures, What Heart Medications Do, Risk Factors & Modifications, Living an Active Life, Nutrition, Emotions & Heart Disease, Stress Management & Relaxation and Sleep Disorders & Heart Disease Education/Goals Cardiac Rehabilitation Goals Personal Goals: Initial Assessment: Improve energy level and Improve muscle strength and endurance Scale for measuring improvement of personal goals Diagnosis & Disease Process Outcomes/Goals: Pt IDs own risk factors & lifestyle modifications by Session 10, Verbalizes symptoms of angina & response by session 3., Pt independently manages and Other Additional Outcomes/Goals: Plan/Interventions: Assist Pt to ID & engage in lifestyle modification to reduce CVD risk, Instruct on individual risk factors, Review symptoms of angina & emergency actions, Review secondary diagnosis & identify educational needs. and Other see comment 30 day Reassessments:: Not Met 30 day Reassessments:: Not Met 30 day Reassessments:: Not Met 30 day Reassessments:: Not Met Final Reassessments:: Not Met Safety Referral to Physical Therapy: No Referral to [facility] Case Management: No Fall Risk Assessed:: Yes Assistive Devices:: None Exercise - Initial Assessment Visit Date of Eval: 10/08/24 (initial eval ) Mets: Pre-: >3 METS for 30 minutes by discharge, >5 METS for 30 minutes by discharge, >7 METS for 30 minutes by discharge and Unable to meet goal due to: (see comment below) Physician Prescribed Exercise Modalities: Treadmill, Schwinn Airdyne AD-7, SciFit Stepper, [employer] Pro-II Ergometer and [employer] Lateral [place] Frequency: 3x/week for 12 weeks [36 sessions] Intensity: 60-80% of age predicted maximum heart rate reserve Duration: 30 - 45 minutes Current METSs:: 3 Target Heart Rate:: 100-124 Resting Blood Pressure: 138/80 EKG Type: NSR Outcomes & Goals Goals:: Verbalizes understanding of THR, RPE & goal METS by session 6, Documents in home exercise log/reports 30 min aerobic 5 day/wk by DC, Demonstrates accurate pulse taking by DC and Other additional outcome/goals: see below Intervention & Plan Exercise Program Goals: Instruct on personal THR & RPE, Instruct on MET level & personal MET goal, Show patient to take own pulse /validate performance until accurate, Instruct on home exercise and Other additional plan/int Physical Activity Home Exercise Physical Activity - Home Exercise: Safe Exercise, Warm-up, Self-monitoring, Cool-Down, Home Exercise > 30 min Daily and Sitting Time <3 hours/daily Outcomes & Goals Outcomes/Goals: Demonstrates correct Warm-up/exercise Cool-Down (S3) if = 2.5 METs, Verbalizes symptoms of exercise intolerance by Session 3 (S3), Demonstrate safe equipment use (S3) & follows exercise prescrition (6) and Other: See below Intervention & Plan Plan/Intervention: Instruct warm-up & cool-down if exercising at > 2 METs, Instruct on symptoms of exercise intolerance & actions to take, Instruct & monitor on saf, Assess intial functional capacity & safety risk and Other See below Nutrition - Initial Assessment Program Goals Nutrition Program Goals Patient has diagnosis of Hyperlipidemia (ICD E78)?: Yes Visit Date of Eval: 10/08/24 (initial eval ) Cholesterol/Lipids (Other Core Measures) Determine presence & major risk factors that modify LDL goal: Cigarette smoking, Hypertension or hypertensive medication, Low HDL cholesterol <40 mg/dL*, Family history of premature CHD in Male < 55 years: female <65 yearsFa and Age men > 45 years; women >/= 55 years Outcomes/Goals: Pt IDs own risk factors & lifestyle modifications by Session 10, Verbalizes symptoms of angina & response by session 3., Pt independently manages and Other Additional Outcomes/Goals: Intervention/Plan: Advocate for lipid panel cholesterol medication if applicable, Instruct on personal lipid levels & lipid goals/NCEP guidelines, Instruct on cholesterol and Other additional plan/int Referral to dietitian:: No (declines at this time) Weight Mgt (Other Care) Height: 5 ft 5 in Weight:: 235 lb BMI: 39.1 Diagnosis Overweight/Obesity BMI> 30% ICD-10 E66: Yes Diagnosis High BMI/Morbid Obesity BMI> 35% ICD-10 Z68: Yes Outcomes/Goals: Pt sets, maintains & shows weight loss goal & trend during rehab and Other additional outcomes/goals Intervention/Plan: Instruct on ideal BMI & set weight loss goal w/patient, Assist pt to ID & incorporate diet changes for weight loss by S9, Refer to Structured Weight Loss program as appropriate, Encourage goal of using 250-300dcal per session for weight loss and Other additional plan/interventions Healthy Eating Habits Will attend diet classes:: Yes Outcomes/Goals:: Consume diet rich in vegs,fruits,whole grain/high fiber,fish,lean meat, Limit sat/trans fats,cholesterol & added salts & sugars and Other additional outcome/goals: Intervention/Plan:: Assess current eating habits and Other Additional plan/interventions Education Gave educational materials for:: Signs & symptoms of hypoglycemia, Signs & symptoms of hyperglycemia, Relate diabetes to coronary artery disease and Healthy eating Core - Initial Assessment Visit Date of Eval: 10/08/24 (initial eval ) Medication Compliance Preventative Medication(s):: Aspirin, Statin/lipid and Beta jesus H/O mental health issues: depression, anxiety, or addiction?: Yes Doesn?t believe in the benefits of treatment?: No Believes medications are unnecessary or harmful?: No Has a concern about medication side effects?: No Expresses concern over the cost of medications?: No Outcomes/Goals: Verbalizes medications,desired effect & common side effects @ DC, Pt self-reports following medication regimen, Keeps card in wallet w/medications listed by DC and Other additional outcome/goals: Interventions/plans: Instruct on medication effects & side effects, Review medication list w/patient every two weeks, Instruct importance of taking meds as ordered & assist problem solving and Other additional Tobacco Use Tobacco Use: Cigarettes How long ago did you quit using tobacco products?: Less than 6 months ago Outcomes/Goals: Smoking cessation achieved or maintained by discharge, Identify aids/strategies for achieving smoking cessation by session 6 and Other additional outcome/goals Interventions/plan: Instruct on effects of smoking & provide smoking cessation resource, Assist pt to set quit date & provide encouragement, Assist pt to develop strategies to achieve/maintain quit date, Assist pt w/nicotine replacement & medication for cessation success and Other additional plan/interventions Hypertension Hypertension Diagnosis:: Hypertension ICD-10 I10 Resting Blood Pressure:: 138/80 [place] [employer] Hypertension Guidelines Outcomes/Goals: Able to verbalize/achieve optimal blood pressure <130/80, Incorporates diet changes & exercise for blood pressure control by DC and Other additional outcomes/goals Interventions/plan: Instruct on optimal blood pressure, hypertension & medications, Instruct on effects of sodium, alcohol, stress, exercise &hypertension and Other additional plan/interventions Tobacco Cessation Referral Smoking Cessation Referral:: No Individual Education/Counseling:: No Education Schedule Given:: Yes Psychosocial - Initial Assess VIsit Date of Eval: 10/08/24 (initial eval ) History of previous Mental disease:: Yes History of Emotional Disorders: Anxious and Depression (Pt is currently in counseling and doing fine. Pt sees counselor 1 time a week.) Target Goals Target Goals Psychosocial Test Tool Used:: PHQ-9 Questionnaire phq-9 Severity See PHQ-9 Score: 0 Referral to Behavioral Health PS - Interventions: Yes: Attend Stress Management Classes Outcomes/Goals: See list Psychosocial Outcomes/Goals:: ID's personal stressors & 2 strategies to manage stress by discharge and Other Additional outcome/goals: Intervention/Plan: See List Interventions/Plan:: Assess stressors,coping strategies & signs of derpression on admission, Instruct/assist pt to develop coping & personal stress Mgt strategies, Refer to Behavioral Health if appropriate, Refer to Physician if appropriate, Instruct patient to recognize signs & symptoms of depression, Instruct patient to recog and Other additional plan/intervention Patient Health Questionnaire PHQ-9 Screening Initial Assessment: 1. Little interest or pleasure in doing things: Not at all 2. Feeling down, depressed, or hopeless: Not at all 3. Trouble falling or staying asleep, or sleeping too much: Not at all 4. Feeling tired or having little energy: Not at all 5. Poor appetite or overeating: Not at all 6. Feeling bad about yourself -- or that you are a failure or have let yourself or your family down: Not at all 7. Trouble concentrating on things, such as reading the newspaper or watching television: Not at all 8. Moving or speaking so slowly that other people could have noticed. Or the opposite - being so fidgety or restless that you have been moving around a lot more than usual: Not at all 9. Thoughts that you would be better off , or of hurting yourself in some way: Not at all Total Score: 0 CARMEN-Q SV Test Statements CAD is a disease of the arteries in the heart: False Examples of risk factors for heart disease: True Angina is chest pain or discomfort: True The benefits of resistance training include: True Eating more meat and dairy products: False Anti-platelet medications such as aspirin are important: True The only effective way to manage stress: False An exercise warm-up slowly increases heart rate: True Prepared, processed foods usually have high sodium: True Depression is common after a heart attack: I Don't Know The statin medications lower cholesterol: True To control blood pressure, lower the amount of sodium: True If someone gets chest discomfort during walking: False Transfats are partially hydrogenated vegetable oils: True Sleep apnea that is not treated increases the risk: I Don't Know To control cholesterol, one should become a vegetarian: False Someone knows if he/she is exercising at the right level: I Don't Know Diabetes cannot be prevented with exercise & health eating: True Stress is a large risk for heart attack: True A diet that can help lower blood pressure is rich in: True Total Score Total Correct Responses: 16 Self-Efficacy 6-Item Scale Initial Assessment: We would like to know how confident you are in doing certain activities. Please select your confidence level for: Fatigue Select Number: 3 Physical Discomfort or Pain Select Number: 10 Emotional Distress Select Number: 2 Other Symptoms or Health Problems Select Number: 3 Different Tasks and Activities Select Number: 5 Medication Select Number: 6 Total Score:: 4 Nutrition Survey Nutrition Survey Instructions Scoring Instructions Nutrition Survey Initial: Have you lost >10 lbs over the past 2 months without trying?: No Are you following a special diet at home for diabetes, low fat, or low salt?: No Are you interested in meeting with a dietitian for help understanding your diet?: No Do you eat less than 3 meals a day?: Yes Do you eat fatty meats (seay, sausage, ribs, etc), fried foods, desserts, large amounts of salad dressings, margarine, butter, or cheese most days?: No Do you have food allergies? [Enter types in comment field]: No Do you eat in restaurants more than 3 times a week?: No Do you season food with salt, seasoning salt, or garlic salt?: Yes Do you used canned, boxed, frozen meals, or soups, seasoning packets?: No Total Score:: 2 Exercise - 30-day Assessment Physician Prescribed Exercise Modalities: Treadmill, Schwinn Airdyne AD-7, SciFit Stepper, SciFit Pro-II Ergometer and SciFit Lateral [place] Exercise - 60-day Assessment Physician Prescribed Exercise Modalities: Treadmill, Schw[employer] Airdyne AD-7, SciFit Stepper, SciFit Pro-II Ergometer and SciFit Lateral [place] Exercise - 90-day Assessment Physician Prescribed Exercise Modalities: Treadmill, Schwinn Airdyne AD-7, SciFit Stepper, SciFit Pro-II Ergometer and SciFit Lateral Operations Consultant Exercise - Final/Discharge Physician Prescribed Exercise Modalities: Treadmill, Schwinn Airdyne AD-7, SciFit Stepper, SciFit Pro-II Ergometer and SciFit Lateral Operations Consultant Frequency: 3x/week for 12 weeks [36 sessions] Intensity: 60-80% of age predicted maximum heart rate reserve Current METSs:: 3 Target Heart Rate:: 100-124 Nutrition - 30-Day Assessment Weight Mgt (Other Care) Height: 5 ft 5 in Weight:: 235 lb BMI: 39.1 Nutrition - 60-Day Assessment Weight Mgt (Other Care) Height: 5 ft 5 in Weight:: 235 lb BMI: 39.1 Core - Final Assessment Hypertension Resting Blood Pressure:: 138/80 [place] [employer] Hypertension Guidelines Core - 60-Day Assessment Hypertension Resting Blood Pressure:: 138/80 [place] [employer] Hypertension Guidelines Psychosocial - 30-Day Assess Target Goals Target Goals Referral to Behavioral Health PS - Interventions: Yes: Attend Stress Management Classes Psychosocial - 60-Day Assess Target Goals Target Goals Referral to Behavioral Health PS - Interventions: Yes: Attend Stress Management Classes Psychosocial - 90-Day Assess Target Goals Target Goals Referral to Behavioral Health PS - Interventions: Yes: Attend Stress Management Classes Psychosocial - Final Assessmen Target Goals Target Goals Psychosocial Test phq-9 Severity See PHQ-9 Score: 0 Referral to Behavioral Health PS - Interventions: Yes: Attend Stress Management Classes Nutrition - 90-Day Assessment Weight Mgt (Other Care) Height: 5 ft 5 in Weight:: 235 lb BMI: 39.1 Nutrition - Final Assessment Program Goals Patient has diagnosis of Hyperlipidemia (ICD E78)?: Yes Weight Mgt (Other Care) Height: 5 ft 5 in Weight:: 235 lb BMI: 39.1
[2024-10-08 10:59] VITALS: BMI 39.1
[2024-10-08 11:03] VITALS: BP 138/80; PULSE 71; O2SAT 97
[2024-10-08 11:33] VITALS: BP 138/80; BMI 39.1
== END | disposition home or self-care (01) ==
PROVIDERS: PCP Family Medicine; Referring Provider Thoracic Surgery (Cardiothoracic Vascular Surgery); Visit Provider Thoracic Surgery (Cardiothoracic Vascular Surgery)
DX: Z95.2 Presence of prosthetic heart valve (principal); I35.0 Nonrheumatic aortic (valve) stenosis; I10 Essential (primary) hypertension; E78.5 Hyperlipidemia, unspecified; E66.9 Obesity, unspecified; Z68.39 Body mass index [BMI] 39.0-39.9, adult; Z79.899 Other long term (current) drug therapy; Z87.891 Personal history of nicotine dependence

== ENCOUNTER 2024-10-19 13:00 | Outpatient (RCR) | payer MEDICAID, SELFPAY ==
[2024-10-08 11:33] VITALS: BMI 39.1
== END 2024-10-19 23:59 ==
LOC: CR 13:00
PROVIDERS: PCP Family Medicine; Referring Provider Thoracic Surgery (Cardiothoracic Vascular Surgery); Visit Provider Thoracic Surgery (Cardiothoracic Vascular Surgery)
DX: Z48.812 Encounter for surgical aftercare following surgery on the circulatory system (principal); Z95.2 Presence of prosthetic heart valve
CPT/HCPCS: 93798

== ENCOUNTER 2024-11-18 13:00 | Outpatient (RCR) | payer MEDICAID, SELFPAY ==
[2024-10-08 11:33] VITALS: BMI 39.1
--- NOTE | 2024-11-03 07:32 | PCM.CR.ITP ---
Exercise - Initial Assessment Visit Session #:: 4 Physician Prescribed Exercise Modalities: Treadmill, Schwinn Airdyne AD-7 and SciFit Stepper Nutrition - Initial Assessment Weight Mgt (Other Care) Height: 5 ft 5 in Weight:: 235 lb BMI: 39.1 Psychosocial - Initial Assess Target Goals Target Goals Referral to Behavioral Health PS - Interventions: Yes: Attend Stress Management Classes Patient Health Questionnaire PHQ-9 Screening 30-Day Re-eval Assessment: 1. Little interest or pleasure in doing things: Not at all 2. Feeling down, depressed, or hopeless: Not at all 3. Trouble falling or staying asleep, or sleeping too much: Not at all 4. Feeling tired or having little energy: Not at all 5. Poor appetite or overeating: Not at all 6. Feeling bad about yourself -- or that you are a failure or have let yourself or your family down: Not at all 7. Trouble concentrating on things, such as reading the newspaper or watching television: Not at all 8. Moving or speaking so slowly that other people could have noticed. Or the opposite - being so fidgety or restless that you have been moving around a lot more than usual: Not at all 9. Thoughts that you would be better off , or of hurting yourself in some way: Not at all How difficult have these problems made it for you to do your work, take care of things at home, or get along with other people?: Not difficult at all Total Score: 0 Self-Efficacy 6-Item Scale 30-Day Re-eval Assessment: We would like to know how confident you are in doing certain activities. Please select your confidence level for: Fatigue Select Number: 3 Physical Discomfort or Pain Select Number: 10 Emotional Distress Select Number: 2 Other Symptoms or Health Problems Select Number: 3 Different Tasks and Activities Select Number: 5 Medication Select Number: 6 Total Score:: 4 Nutrition Survey Nutrition Survey Instructions Scoring Instructions Exercise - 30-day Assessment Visit Date of Eval: 11/03/24 Session #:: 4 Physician Prescribed Exercise Modalities: Treadmill, Schwinn Airdyne AD-7 and SciFit Stepper Frequency: 3x/week for 12 weeks [36 sessions] Intensity: 60-80% of age predicted maximum heart rate reserve Duration: 30 - 45 minutes Current METSs:: 3.6 Target Heart Rate:: 100-124 Current RPE:: 11.5-12.5 Maximum Excercise HR:: 129 Resting Blood Pressure: 128/64 Maximum Exercise Blood Pressure: 162/84 EKG Type: NSR to ST Outcomes & Goals Goals:: Verbalizes understanding of THR, RPE & goal METS by session 6, Documents in home exercise log/reports 30 min aerobic 5 day/wk by DC, Demonstrates accurate pulse taking by DC and Other additional outcome/goals: see below Intervention & Plan Exercise Program Goals: Instruct on personal THR & RPE, Instruct on MET level & personal MET goal, Show patient to take own pulse /validate performance until accurate, Instruct on home exercise and Other additional plan/int Physical Activity Home Exercise Physical Activity - Home Exercise: Safe Exercise, Warm-up, Self-monitoring, Cool-Down, Home Exercise > 30 min Daily and Sitting Time <3 hours/daily Outcomes & Goals Outcomes/Goals: Demonstrates correct Warm-up/exercise Cool-Down (S3) if = 2.5 METs, Verbalizes symptoms of exercise intolerance by Session 3 (S3), Demonstrate safe equipment use (S3) & follows exercise prescrition (6) and Other: See below Intervention & Plan Plan/Intervention: Instruct warm-up & cool-down if exercising at > 2 METs, Instruct on symptoms of exercise intolerance & actions to take, Instruct & monitor on saf, Assess intial functional capacity & safety risk and Other See below 30-day Reassessments 30 day Reassessments:: Progressing Reassessment Notes & Comments:: RPE explained to pt. Pt demonstrates understanding in her daily sessions. Exercise - 60-day Assessment Physician Prescribed Exercise Modalities: Treadmill, Schwinn Airdyne AD-7 and SciFit Stepper Exercise - 90-day Assessment Physician Prescribed Exercise Modalities: Treadmill, Schwinn Airdyne AD-7 and SciFit Stepper Exercise - Final/Discharge Physician Prescribed Exercise Modalities: Treadmill, Schwinn Airdyne AD-7 and SciFit Stepper Nutrition - 30-Day Assessment Visit Date of Eval: 11/03/24 Session #:: 4 Cholesterol/Lipids (Other Core Measures) Determine presence & major risk factors that modify LDL goal: Cigarette smoking, Hypertension or hypertensive medication, Low HDL cholesterol <40 mg/dL*, Family history of premature CHD in Male < 55 years: female <65 yearsFa and Age men > 45 years; women >/= 55 years Outcomes/Goals: Pt IDs own risk factors & lifestyle modifications by Session 10, Verbalizes symptoms of angina & response by session 3., Pt independently manages and Other Additional Outcomes/Goals: Intervention/Plan: Advocate for lipid panel cholesterol medication if applicable, Instruct on personal lipid levels & lipid goals/NCEP guidelines, Instruct on cholesterol and Other additional plan/int Referral to dietitian:: No (declines) Weight Mgt (Other Care) Height: 5 ft 5 in Weight:: 235 lb BMI: 39.1 Diagnosis Overweight/Obesity BMI> 30% ICD-10 E66: Yes Diagnosis High BMI/Morbid Obesity BMI> 35% ICD-10 Z68: Yes Outcomes/Goals: Pt sets, maintains & shows weight loss goal & trend during rehab and Other additional outcomes/goals Healthy Eating Habits Will attend diet classes:: Yes Outcomes/Goals:: Consume diet rich in vegs,fruits,whole grain/high fiber,fish,lean meat, Limit sat/trans fats,cholesterol & added salts & sugars and Other additional outcome/goals: Intervention/Plan:: Assess current eating habits and Other Additional plan/interventions 30-day Reassessments:: Progressing Reassessment Notes & Comments:: Pt is scheduled to attend nutrition class. Heart health low sodium diet encouraged. Education Gave educational materials for:: Signs & symptoms of hypoglycemia, Signs & symptoms of hyperglycemia, Relate diabetes to coronary artery disease and Healthy eating Nutrition - 60-Day Assessment Weight Mgt (Other Care) Height: 5 ft 5 in Weight:: 235 lb BMI: 39.1 Core - 30-Day Assessment Visit Date of Eval: 11/03/24 Session #:: 4 Medication Compliance Preventative Medication(s):: Aspirin, Statin/lipid and Beta jesus H/O mental health issues: depression, anxiety, or addiction?: Yes Doesn?t believe in the benefits of treatment?: No Believes medications are unnecessary or harmful?: No Has a concern about medication side effects?: No Expresses concern over the cost of medications?: No Outcomes/Goals: Verbalizes medications,desired effect & common side effects @ DC, Pt self-reports following medication regimen, Keeps card in wallet w/medications listed by DC and Other additional outcome/goals: Interventions/plans: Instruct on medication effects & side effects, Review medication list w/patient every two weeks, Instruct importance of taking meds as ordered & assist problem solving and Other additional Tobacco Use Tobacco Use: Cigarettes How long ago did you quit using tobacco products?: Less than 6 months ago Outcomes/Goals: Smoking cessation achieved or maintained by discharge, Identify aids/strategies for achieving smoking cessation by session 6 and Other additional outcome/goals Interventions/plan: Instruct on effects of smoking & provide smoking cessation resource, Assist pt to set quit date & provide encouragement, Assist pt to develop strategies to achieve/maintain quit date, Assist pt w/nicotine replacement & medication for cessation success and Other additional plan/interventions 30-day Reassessments:: Progressing Reassessment Notes & Comments:: Pt has stopped smoking. Will continue to monitor and encourage. Hypertension Hypertension Diagnosis:: Hypertension ICD-10 I10 Resting Blood Pressure:: 128/64 [place] [employer] Hypertension Guidelines Peak Exercise Blood Pressure:: 162/84 Outcomes/Goals: Able to verbalize/achieve optimal blood pressure <130/80, Incorporates diet changes & exercise for blood pressure control by DC and Other additional outcomes/goals Interventions/plan: Instruct on optimal blood pressure, hypertension & medications, Instruct on effects of sodium, alcohol, stress, exercise &hypertension and Other additional plan/interventions 30 day Reassessments:: Progressing Reassessment Notes & Comments:: Pt's BP's are within AHA normal limits on most days. Will continue to monitor and report to pt's physician if necessary. Tobacco Cessation Referral Education Schedule Given:: Yes Psychosocial - 30-Day Assess VIsit Date of Eval: 11/03/24 Session #:: 4 History of previous Mental disease:: Yes History of Emotional Disorders: Depression (Pt is currently in counseling and doing fine. Pt sees counselor 1 time a week. ) Target Goals Target Goals Psychosocial Test Tool Used:: PHQ-9 Questionnaire phq-9 Severity See PHQ-9 Score: 0 Referral to Behavioral Health PS - Interventions: Yes: Attend Stress Management Classes Outcomes/Goals: See list Psychosocial Outcomes/Goals:: ID's personal stressors & 2 strategies to manage stress by discharge and Other Additional outcome/goals: Intervention/Plan: See List Interventions/Plan:: Assess stressors,coping strategies & signs of derpression on admission, Instruct/assist pt to develop coping & personal stress Mgt strategies, Refer to Behavioral Health if appropriate, Refer to Physician if appropriate, Instruct patient to recognize signs & symptoms of depression, Instruct patient to recog and Other additional plan/intervention 30-day Reassessments: 30 day Reassessments:: Progressing Reassessment Notes & Comments:: Pt is in counseling and will attend stress management class. Psychosocial - 60-Day Assess Target Goals Target Goals Referral to Behavioral Health PS - Interventions: Yes: Attend Stress Management Classes Outcomes/Goals: See list Psychosocial Outcomes/Goals:: ID's personal stressors & 2 strategies to manage stress by discharge and Other Additional outcome/goals: Psychosocial - 90-Day Assess Target Goals Target Goals Referral to Behavioral Health PS - Interventions: Yes: Attend Stress Management Classes Psychosocial - Final Assessmen Target Goals Target Goals Referral to Behavioral Health PS - Interventions: Yes: Attend Stress Management Classes Nutrition - 90-Day Assessment Weight Mgt (Other Care) Height: 5 ft 5 in Weight:: 235 lb BMI: 39.1 Nutrition - Final Assessment Weight Mgt (Other Care) Height: 5 ft 5 in Weight:: 235 lb BMI: 39.1
[2024-11-03 07:42] VITALS: BP 128/64; BMI 39.1
== END 2024-11-19 23:59 ==
LOC: CR 13:00
PROVIDERS: PCP Family Medicine; Referring Provider Thoracic Surgery (Cardiothoracic Vascular Surgery); Visit Provider Thoracic Surgery (Cardiothoracic Vascular Surgery)
DX: Z48.812 Encounter for surgical aftercare following surgery on the circulatory system (principal); Z95.2 Presence of prosthetic heart valve
CPT/HCPCS: 93798

== ENCOUNTER 2024-12-16 13:00 | Outpatient (RCR) | payer MEDICAID, SELFPAY ==
[2024-11-03 07:42] VITALS: BMI 39.1
--- NOTE | 2024-12-02 08:03 | PCM.CR.ITP ---
Exercise - Initial Assessment Physician Prescribed Exercise Modalities: SciFit Stepper and SciFit Pro-II Ergometer Nutrition - Initial Assessment Weight Mgt (Other Care) Height: 5 ft 5 in Weight:: 247 lb BMI: 41.1 Core - Initial Assessment Hypertension Resting Blood Pressure:: 130/72 [place] [employer] Hypertension Guidelines Psychosocial - Initial Assess Target Goals Target Goals Referral to Behavioral Health PS - Interventions: Yes: Attend Stress Management Classes Patient Health Questionnaire PHQ-9 Screening 60-Day Re-eval Assessment: 1. Little interest or pleasure in doing things: Not at all 2. Feeling down, depressed, or hopeless: Not at all 3. Trouble falling or staying asleep, or sleeping too much: Not at all 4. Feeling tired or having little energy: Not at all 5. Poor appetite or overeating: Not at all 6. Feeling bad about yourself -- or that you are a failure or have let yourself or your family down: Not at all 7. Trouble concentrating on things, such as reading the newspaper or watching television: Not at all 8. Moving or speaking so slowly that other people could have noticed. Or the opposite - being so fidgety or restless that you have been moving around a lot more than usual: Not at all 9. Thoughts that you would be better off , or of hurting yourself in some way: Not at all Total Score: 0 Self-Efficacy 6-Item Scale 60-Day Re-eval Assessment: We would like to know how confident you are in doing certain activities. Please select your confidence level for: Fatigue Select Number: 3 Physical Discomfort or Pain Select Number: 10 Emotional Distress Select Number: 2 Other Symptoms or Health Problems Select Number: 3 Different Tasks and Activities Select Number: 5 Medication Select Number: 6 Total Score:: 4 Nutrition Survey Nutrition Survey Instructions Scoring Instructions Exercise - 30-day Assessment Physician Prescribed Exercise Modalities: SciFit Stepper and SciFit Pro-II Ergometer Exercise - 60-day Assessment Visit Date of Eval: 12/02/24 Session #:: 12 Physician Prescribed Exercise Modalities: SciFit Stepper and SciFit Pro-II Ergometer Frequency: 3x/week for 12 weeks [36 sessions] Intensity: 60-80% of age predicted maximum heart rate reserve Duration: 30 - 45 minutes Current METSs:: 4.1 Target Heart Rate:: 100-124 Current RPE:: 13 Maximum Excercise HR:: 113 Resting Blood Pressure: 106/72 Maximum Exercise Blood Pressure: 130/72 EKG Type: NSR-ST w/out ectopy. Outcomes & Goals Goals:: Verbalizes understanding of THR, RPE & goal METS by session 6, Documents in home exercise log/reports 30 min aerobic 5 day/wk by DC, Demonstrates accurate pulse taking by DC and Other additional outcome/goals: see below Intervention & Plan Exercise Program Goals: Instruct on personal THR & RPE, Instruct on MET level & personal MET goal, Show patient to take own pulse /validate performance until accurate, Instruct on home exercise and Other additional plan/int Physical Activity Home Exercise Physical Activity - Home Exercise: Safe Exercise, Warm-up, Self-monitoring, Cool-Down, Home Exercise > 30 min Daily and Sitting Time <3 hours/daily Outcomes & Goals Outcomes/Goals: Demonstrates correct Warm-up/exercise Cool-Down (S3) if = 2.5 METs, Verbalizes symptoms of exercise intolerance by Session 3 (S3), Demonstrate safe equipment use (S3) & follows exercise prescrition (6) and Other: See below Intervention & Plan Plan/Intervention: Instruct warm-up & cool-down if exercising at > 2 METs, Instruct on symptoms of exercise intolerance & actions to take, Instruct & monitor on saf, Assess intial functional capacity & safety risk and Other See below 30-day Reassessments 30 day Reassessments:: Progressing Reassessment Notes & Comments:: Proper warm up and cool down explained to pt. Pt demonstrates understanding in her daily sessions. Will continue to encourage pt to increase workloads as tolerated. Exercise - 90-day Assessment Physician Prescribed Exercise Modalities: SciFit Stepper and SciFit Pro-II Ergometer Exercise - Final/Discharge Physician Prescribed Exercise Modalities: SciFit Stepper and SciFit Pro-II Ergometer Nutrition - 30-Day Assessment Weight Mgt (Other Care) Height: 5 ft 5 in Weight:: 247 lb BMI: 41.1 Nutrition - 60-Day Assessment Program Goals Nutrition Program Goals Patient has diagnosis of Hyperlipidemia (ICD E78)?: No Visit Date of Eval: 12/02/24 Session #:: 12 Cholesterol/Lipids (Other Core Measures) Determine presence & major risk factors that modify LDL goal: Cigarette smoking, Hypertension or hypertensive medication, Low HDL cholesterol <40 mg/dL*, Family history of premature CHD in Male < 55 years: female <65 yearsFa and Age men > 45 years; women >/= 55 years Outcomes/Goals: Pt IDs own risk factors & lifestyle modifications by Session 10, Verbalizes symptoms of angina & response by session 3., Pt independently manages and Other Additional Outcomes/Goals: Intervention/Plan: Advocate for lipid panel cholesterol medication if applicable, Instruct on personal lipid levels & lipid goals/NCEP guidelines, Instruct on cholesterol and Other additional plan/int Referral to dietitian:: No (declines) Diabetes (Other Core Measures) Diabetes Type: Not Applicable Weight Mgt (Other Care) Height: 5 ft 5 in Weight:: 247 lb BMI: 41.1 Diagnosis Overweight/Obesity BMI> 30% ICD-10 E66: Yes Diagnosis High BMI/Morbid Obesity BMI> 35% ICD-10 Z68: Yes Outcomes/Goals: Pt sets, maintains & shows weight loss goal & trend during rehab and Other additional outcomes/goals Intervention/Plan: Instruct on ideal BMI & set weight loss goal w/patient, Assist pt to ID & incorporate diet changes for weight loss by S9, Refer to Structured Weight Loss program as appropriate, Encourage goal of using 250-300dcal per session for weight loss and Other additional plan/interventions 30 day Reassessments:: Progressing Reassessment Notes & Comments:: Pt is attending nutrition class this week with our patient financial representative. Heart healthy low sodium diet encouraged. Pt declined a 1 on 1 consultation with our patient financial representative. Healthy Eating Habits Will attend diet classes:: Yes Outcomes/Goals:: Consume diet rich in vegs,fruits,whole grain/high fiber,fish,lean meat, Limit sat/trans fats,cholesterol & added salts & sugars and Other additional outcome/goals: Intervention/Plan:: Assess current eating habits and Other Additional plan/interventions 30-day Reassessments:: Progressing Reassessment Notes & Comments:: Pt is attending nutrition class this week with our patient financial representative. Heart healthy low sodium diet encouraged. Pt declined a 1 on 1 consultation with our patient financial representative. Education Gave educational materials for:: Signs & symptoms of hypoglycemia, Signs & symptoms of hyperglycemia, Relate diabetes to coronary artery disease and Healthy eating Core - Final Assessment Hypertension Resting Blood Pressure:: 130/72 [place] [employer] Hypertension Guidelines Core - 60-Day Assessment Visit Date of Eval: 12/02/24 Session #:: 12 Medication Compliance Preventative Medication(s):: Aspirin, Statin/lipid and Beta jesus H/O mental health issues: depression, anxiety, or addiction?: Yes Doesn’t believe in the benefits of treatment?: No Believes medications are unnecessary or harmful?: No Has a concern about medication side effects?: No Expresses concern over the cost of medications?: No Outcomes/Goals: Verbalizes medications,desired effect & common side effects @ DC, Pt self-reports following medication regimen, Keeps card in wallet w/medications listed by DC and Other additional outcome/goals: Interventions/plans: Instruct on medication effects & side effects, Review medication list w/patient every two weeks, Instruct importance of taking meds as ordered & assist problem solving and Other additional 30-day Reassessments:: Progressing Reassessment Notes & Comments:: Pt currently taking meds as prescribed. Tobacco Use Tobacco Use: Non-smoker How long ago did you quit using tobacco products?: Less than 6 months ago Outcomes/Goals: Smoking cessation achieved or maintained by discharge, Identify aids/strategies for achieving smoking cessation by session 6 and Other additional outcome/goals Interventions/plan: Instruct on effects of smoking & provide smoking cessation resource, Assist pt to set quit date & provide encouragement, Assist pt to develop strategies to achieve/maintain quit date, Assist pt w/nicotine replacement & medication for cessation success and Other additional plan/interventions 30-day Reassessments:: Met Reassessment Notes & Comments:: Pt has stopped smoking. Will continue to monitor. Pt will also attend smoking class. Hypertension Hypertension Diagnosis:: Hypertension ICD-10 I10 Resting Blood Pressure:: 106/72 Resting Blood Pressure:: 130/72 [place] [employer] Hypertension Guidelines Peak Exercise Blood Pressure:: 130/72 Outcomes/Goals: Able to verbalize/achieve optimal blood pressure <130/80, Incorporates diet changes & exercise for blood pressure control by DC and Other additional outcomes/goals Interventions/plan: Instruct on optimal blood pressure, hypertension & medications, Instruct on effects of sodium, alcohol, stress, exercise &hypertension and Other additional plan/interventions 30 day Reassessments:: Progressing Reassessment Notes & Comments:: Pt's BP's are within AHA normal limits on most days. Will continue to monitor and send report to pt's physician if necessary. Tobacco Cessation Referral Education Schedule Given:: Yes Psychosocial - 30-Day Assess Target Goals Target Goals Referral to Behavioral Health PS - Interventions: Yes: Attend Stress Management Classes Outcomes/Goals: See list Psychosocial Outcomes/Goals:: ID's personal stressors & 2 strategies to manage stress by discharge and Other Additional outcome/goals: Psychosocial - 60-Day Assess VIsit Date of Eval: 12/02/24 Session #:: 12 History of previous Mental disease:: Yes History of Emotional Disorders: Depression (Pt states she is currently in counseling and doing fine. Pt sees counselor 1 time a week.) Target Goals Target Goals Psychosocial Test Tool Used:: PHQ-9 Questionnaire phq-9 Severity See PHQ-9 Score: 0 Referral to Behavioral Health PS - Interventions: Yes: Attend Stress Management Classes Outcomes/Goals: See list Psychosocial Outcomes/Goals:: ID's personal stressors & 2 strategies to manage stress by discharge and Other Additional outcome/goals: Intervention/Plan: See List Interventions/Plan:: Assess stressors,coping strategies & signs of derpression on admission, Instruct/assist pt to develop coping & personal stress Mgt strategies, Refer to Behavioral Health if appropriate, Refer to Physician if appropriate, Instruct patient to recognize signs & symptoms of depression, Instruct patient to recog and Other additional plan/intervention 30-day Reassessments: 30 day Reassessments:: Met Reassessment Notes & Comments:: Pt states she is currently in counseling and doing fine. Pt sees counselor 1 time a week. Pt will also attend stress management class with us. Psychosocial - 90-Day Assess Target Goals Target Goals Referral to Behavioral Health PS - Interventions: Yes: Attend Stress Management Classes Psychosocial - Final Assessmen Target Goals Target Goals Referral to Behavioral Health PS - Interventions: Yes: Attend Stress Management Classes Nutrition - 90-Day Assessment Weight Mgt (Other Care) Height: 5 ft 5 in Weight:: 247 lb BMI: 41.1 Nutrition - Final Assessment Weight Mgt (Other Care) Height: 5 ft 5 in Weight:: 247 lb BMI: 41.1
[2024-12-02 08:19] VITALS: BP 106/72; BP 130/72; BMI 41.1
== END 2024-12-20 23:59 ==
LOC: CR 13:00
PROVIDERS: PCP Family Medicine; Referring Provider Thoracic Surgery (Cardiothoracic Vascular Surgery); Visit Provider Thoracic Surgery (Cardiothoracic Vascular Surgery)
DX: Z48.812 Encounter for surgical aftercare following surgery on the circulatory system (principal); Z95.2 Presence of prosthetic heart valve
CPT/HCPCS: 93798

== ENCOUNTER 2024-12-30 13:00 | Outpatient (RCR) | payer MEDICAID, SELFPAY ==
[2024-12-02 08:19] VITALS: BMI 41.1
--- NOTE | 2024-12-30 09:42 | CR.ITP_ITS ---
Exercise - Initial Assessment Physician Prescribed Exercise Modalities: SciFit Stepper and SciFit Pro-II Ergometer Nutrition - Initial Assessment Weight Mgt (Other Care) Height: 5 ft 5 in Weight:: 246 lb BMI: 40.9 Psychosocial - Initial Assess Referral to Behavioral Health PS - Interventions: Yes: Attend Stress Management Classes Patient Health Questionnaire PHQ-9 Screening 90-Day Re-eval Assessment: 1. Little interest or pleasure in doing things: Not at all 2. Feeling down, depressed, or hopeless: Not at all 3. Trouble falling or staying asleep, or sleeping too much: Not at all 4. Feeling tired or having little energy: Not at all 5. Poor appetite or overeating: Not at all 6. Feeling bad about yourself -- or that you are a failure or have let yourself or your family down: Not at all 7. Trouble concentrating on things, such as reading the newspaper or watching television: Not at all 8. Moving or speaking so slowly that other people could have noticed. Or the opposite - being so fidgety or restless that you have been moving around a lot more than usual: Not at all 9. Thoughts that you would be better off , or of hurting yourself in some way: Not at all How difficult have these problems made it for you to do your work, take care of things at home, or get along with other people?: Not difficult at all Total Score: 0 Self-Efficacy 6-Item Scale 90-Day Re-eval Assessment: We would like to know how confident you are in doing certain activities. Please select your confidence level for: Fatigue Select Number: 3 Physical Discomfort or Pain Select Number: 10 Emotional Distress Select Number: 2 Other Symptoms or Health Problems Select Number: 3 Different Tasks and Activities Select Number: 5 Medication Select Number: 6 Total Score:: 4 Exercise - 30-day Assessment Physician Prescribed Exercise Modalities: SciFit Stepper and SciFit Pro-II Ergometer Exercise - 60-day Assessment Physician Prescribed Exercise Modalities: SciFit Stepper and SciFit Pro-II Ergometer Exercise - 90-day Assessment Visit Date of Eval: 12/30/24 Session #:: 19 Physician Prescribed Exercise Modalities: SciFit Stepper and SciFit Pro-II Ergometer Frequency: 3x/week for 12 weeks [36 sessions] Intensity: 60-80% of age predicted maximum heart rate reserve Duration: 30 - 45 minutes Current METSs:: 4.6 Target Heart Rate:: 100-134 Current RPE:: 12-13 Maximum Excercise HR:: 109 Resting Blood Pressure: 130/68 Maximum Exercise Blood Pressure: 130/68 EKG Type: NSR-ST Outcomes & Goals Goals:: Verbalizes understanding of THR, RPE & goal METS by session 6, Documents in home exercise log/reports 30 min aerobic 5 day/wk by DC, Demonstrates accurate pulse taking by DC and Other additional outcome/goals: see below Intervention & Plan Exercise Program Goals: Instruct on personal THR & RPE, Instruct on MET level & personal MET goal, Show patient to take own pulse /validate performance until accurate, Instruct on home exercise and Other additional plan/int Physical Activity Home Exercise Physical Activity - Home Exercise: Safe Exercise, Warm-up, Self-monitoring, Cool-Down, Home Exercise > 30 min Daily and Sitting Time <3 hours/daily Outcomes & Goals Outcomes/Goals: Demonstrates correct Warm-up/exercise Cool-Down (S3) if = 2.5 METs, Verbalizes symptoms of exercise intolerance by Session 3 (S3), Demonstrate safe equipment use (S3) & follows exercise prescrition (6) and Other: See below Intervention & Plan Plan/Intervention: Instruct warm-up & cool-down if exercising at > 2 METs, Instruct on symptoms of exercise intolerance & actions to take, Instruct & monitor on saf, Assess intial functional capacity & safety risk and Other See below 30-day Reassessments 30 day Reassessments:: Progressing Reassessment Notes & Comments:: Pt has been able to increase her workloads to 4.6 METS. Will continue to increase workloads as tolerated. Pt encouraged to exercise at home on her off days. Exercise - Final/Discharge Physician Prescribed Exercise Modalities: SciFit Stepper and SciFit Pro-II Ergometer Nutrition - 30-Day Assessment Weight Mgt (Other Care) Height: 5 ft 5 in Weight:: 246 lb BMI: 40.9 Nutrition - 60-Day Assessment Weight Mgt (Other Care) Height: 5 ft 5 in Weight:: 246 lb BMI: 40.9 Core - 30-Day Assessment Hypertension Citizen Of [place] Heart Association Hypertension Guidelines Reassessment Notes & Comments:: Pt's BP's are within AHA normal limits on most days. Will continue to monitor. Low sodium diet and weight loss encouraged. Core - Final Assessment Hypertension Citizen Of [place] Heart Association Hypertension Guidelines Reassessment Notes & Comments:: Pt's BP's are within AHA normal limits on most days. Will continue to monitor. Low sodium diet and weight loss encouraged. Core - 90 Day Assessment Visit Date of Eval: 12/30/24 Session #:: 19 (Nutrition survey score of 2.) Medication Compliance Preventative Medication(s):: Aspirin, Statin/lipid and Beta jesus H/O mental health issues: depression, anxiety, or addiction?: Yes Doesn?t believe in the benefits of treatment?: No Believes medications are unnecessary or harmful?: No Has a concern about medication side effects?: No Expresses concern over the cost of medications?: No Outcomes/Goals: Verbalizes medications,desired effect & common side effects @ DC, Pt self-reports following medication regimen, Keeps card in wallet w/me dications listed by DC and Other additional outcome/goals: Interventions/plans: Instruct on medication effects & side effects, Review medication list w/patient every two weeks, Instruct importance of taking meds as ordered & assist problem solving and Other additional Tobacco Use Tobacco Use: Non-smoker How long ago did you quit using tobacco products?: Less than 6 months ago 30-day Reassessments:: Met Reassessment Notes & Comments:: Pt has stopped smoking. Will continue to monitor. Hypertension Hypertension Diagnosis:: Hypertension ICD-10 I10 Resting Blood Pressure:: 130/88 Citizen Of [place] Heart Association Hypertension Guidelines Peak Exercise Blood Pressure:: 130/88 Outcomes/Goals: Able to verbalize/achieve optimal blood pressure <130/80, Incorporates diet changes & exercise for blood pressure control by DC and Other additional outcomes/goals Interventions/plan: Instruct on optimal blood pressure, hypertension & medications, Instruct on effects of sodium, alcohol, stress, exercise &hypertension and Other additional plan/interventions 30 day Reassessments:: Progressing Reassessment Notes & Comments:: Pt's BP's are within AHA normal limits on most days. Will continue to monitor. Low sodium diet and weight loss encouraged. Psychosocial - 30-Day Assess Referral to Behavioral Health PS - Interventions: Yes: Attend Stress Management Classes Psychosocial - 60-Day Assess Referral to Behavioral Health PS - Interventions: Yes: Attend Stress Management Classes Psychosocial - 90-Day Assess VIsit Date of Eval: 12/30/24 Session #:: 19 History of previous Mental disease:: Yes History of Emotional Disorders: Depression (Pt is currently seeing a counselor 1 time a week and doing well.) Psychosocial Test phq-9 Severity See PHQ-9 Score: 0 Referral to Behavioral Health PS - Interventions: Yes: Attend Stress Management Classes Outcomes/Goals: See list Psychosocial Outcomes/Goals:: ID's personal stressors & 2 strategies to manage stress by discharge and Other Additional outcome/goals: Intervention/Plan: See List Interventions/Plan:: Assess stressors,coping strategies & signs of derpression on admission, Instruct/assist pt to develop coping & personal stress Mgt strategies, Refer to Behavioral Health if appropriate, Refer to Physician if appropriate, Instruct patient to recognize signs & symptoms of depression, Instruct patient to recog and Other additional plan/intervention 30-day Reassessments: 30 day Reassessments:: Met Reassessment Notes & Comments:: Pt is currently seeing a counselor 1 time a week and doing well. Will continue to monitor. Psychosocial - Final Assessmen Referral to Behavioral Health PS - Interventions: Yes: Attend Stress Management Classes Nutrition - 90-Day Assessment Program Goals Nutrition Program Goals Patient has diagnosis of Hyperlipidemia (ICD E78)?: No Visit Date of Eval: 12/30/24 Session #:: 19 Cholesterol/Lipids (Other Core Measures) Determine presence & major risk factors that modify LDL goal: Cigarette smoking, Hypertension or hypertensive medication, Low HDL cholesterol <40 mg/dL*, Family history of premature CHD in Male < 55 years: female <65 yearsFa and Age men > 45 years; women >/= 55 years Outcomes/Goals: Pt IDs own risk factors & lifestyle modifications by Session 10, Verbalizes symptoms of angina & response by session 3., Pt independently manages and Other Additional Outcomes/Goals: Intervention/Plan: Advocate for lipid panel cholesterol medication if applicable, Instruct on personal lipid levels & lipid goals/NCEP guidelines, Instruct on cholesterol and Other additional plan/int Diabetes (Other Core Measures) Diabetes Type: Not Applicable Weight Mgt (Other Care) Height: 5 ft 5 in Weight:: 246 lb BMI: 40.9 Diagnosis Overweight/Obesity BMI> 30% ICD-10 E66: Yes Diagnosis High BMI/Morbid Obesity BMI> 35% ICD-10 Z68: Yes Outcomes/Goals: Pt sets, maintains & shows weight loss goal & trend during rehab Intervention/Plan: Instruct on ideal BMI & set weight loss goal w/patient, Assist pt to ID & incorporate diet changes for weight loss by S9, Refer to Structured Weight Loss program as appropriate and Encourage goal of using 250- 300dcal per session for weight loss Healthy Eating Habits Will attend diet classes:: Yes Outcomes/Goals:: Consume diet rich in vegs,fruits,whole grain/high fiber,fish,lean meat, Limit sat/trans fats,cholesterol & added salts & sugars and Other additional outcome/goals: Intervention/Plan:: Assess current eating habits and Other Additional plan/interventions 30-day Reassessments:: Met Reassessment Notes & Comments:: 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 Heart healthy low sodium diet encouraged. Pt encouraged to keep a food diary for our review. Education Gave educational materials for:: Signs & symptoms of hypoglycemia, Signs & symptoms of hyperglycemia, Relate diabetes to coronary artery disease and Healthy eating Nutrition - Final Assessment Weight Mgt (Other Care) Height: 5 ft 5 in Weight:: 246 lb BMI: 40.9
[2024-12-30 09:52] VITALS: BP 130/68; BMI 40.9
[2024-12-30 10:00] VITALS: BP 130/88
--- NOTE | 2025-01-19 08:34 | PCM.CR.ITP ---
Exercise - Initial Assessment Physician Prescribed Exercise Modalities: SciFit Stepper and SciFit Pro-II Ergometer Nutrition - Initial Assessment Program Goals Nutrition Program Goals Patient has diagnosis of Hyperlipidemia (ICD E78)?: No Weight Mgt (Other Care) Height: 5 ft 5 in Weight:: 249 lb 8 oz BMI: 41.5 Core - Initial Assessment Hypertension Resting Blood Pressure:: 98/58 Citizen Of [place] Heart Association Hypertension Guidelines Psychosocial - Initial Assess Psychosocial Test phq-9 Severity See PHQ-9 Score: 0 Referral to Behavioral Health PS - Interventions: Yes: Attend Stress Management Classes Exercise - 30-day Assessment Physician Prescribed Exercise Modalities: SciFit Stepper and SciFit Pro-II Ergometer Exercise - 60-day Assessment Physician Prescribed Exercise Modalities: SciFit Stepper and SciFit Pro-II Ergometer Exercise - 90-day Assessment Physician Prescribed Exercise Modalities: SciFit Stepper and SciFit Pro-II Ergometer Exercise - Final/Discharge Visit Date of Eval: 01/19/25 Session #:: 20 Comments:: Pt has decided to stop her cardiac rehab due to hip pain. Pt is in the process of getting cleared for a total hip replacement. Physician Prescribed Exercise Modalities: SciFit Stepper and SciFit Pro-II Ergometer Frequency: 3x/week for 12 weeks [36 sessions] Intensity: 60-80% of age predicted maximum heart rate reserve Duration: 30 - 45 minutes Current METSs:: 4.6 Target Heart Rate:: 100-134 Current RPE:: 13 Maximum Heart Rate:: 104 Resting Blood Pressure: 98/58 Maximum Exercise Blood Pressure: 144/68 EKG Type: NSR to ST Outcomes & Goals Goals:: Verbalizes understanding of THR, RPE & goal METS by session 6, Documents in home exercise log/reports 30 min aerobic 5 day/wk by DC, Demonstrates accurate pulse taking by DC and Other additional outcome/goals: see below Intervention & Plan Exercise Program Goals: Instruct on personal THR & RPE, Instruct on MET level & personal MET goal, Show patient to take own pulse /validate performance until accurate, Instruct on home exercise and Other additional plan/int Physical Activity Home Exercise Physical Activity - Home Exercise: Safe Exercise, Warm-up, Self-monitoring, Cool-Down, Home Exercise > 30 min Daily and Sitting Time <3 hours/daily Outcomes & Goals Outcomes/Goals: Demonstrates correct Warm-up/exercise Cool-Down (S3) if = 2.5 METs, Verbalizes symptoms of exercise intolerance by Session 3 (S3), Demonstrate safe equipment use (S3) & follows exercise prescrition (6) and Other: See below Intervention & Plan Plan/Intervention: Instruct warm-up & cool-down if exercising at > 2 METs, Instruct on symptoms of exercise intolerance & actions to take, Instruct & monitor on saf, Assess intial functional capacity & safety risk and Other See below 30-day Reassessments 30 day Reassessments:: Progressing Reassessment Notes & Comments:: Pt is stopping her CR due to hip pain. Pt getting cleared for a total hip replacement. PH III cardiac rehab discussed w/ pt following her surgery and therapy post op. Nutrition - 30-Day Assessment Weight Mgt (Other Care) Height: 5 ft 5 in Weight:: 249 lb 8 oz BMI: 41.5 Nutrition - 60-Day Assessment Weight Mgt (Other Care) Height: 5 ft 5 in Weight:: 249 lb 8 oz BMI: 41.5 Core - 30-Day Assessment Hypertension Citizen Of [place] Heart Association Hypertension Guidelines Reassessment Notes & Comments:: Pt's BP's are within AHA normal limits Core - Final Assessment Visit Date of Eval: 01/19/25 Session #:: 20 Medication Compliance Preventative Medication(s):: Aspirin, Statin/lipid and Beta jesus H/O mental health issues: depression, anxiety, or addiction?: Yes Doesn?t believe in the benefits of treatment?: No Believes medications are unnecessary or harmful?: No Has a concern about medication side effects?: No Expresses concern over the cost of medications?: No Outcomes/Goals: Verbalizes medications,desired effect & common side effects @ DC, Pt self-reports following medication regimen, Keeps card in wallet w/medications listed by DC and Other additional outcome/goals: Interventions/plans: Instruct on medication effects & side effects, Review medication list w/patient every two weeks, Instruct importance of taking meds as ordered & assist problem solving and Other additional Tobacco Use Tobacco Use: Non-smoker (pt stopped smoking) Hypertension Resting Blood Pressure:: 98/58 Citizen Of [place] Heart Association Hypertension Guidelines Peak Exercise Blood Pressure:: 144/68 Outcomes/Goals: Able to verbalize/achieve optimal blood pressure <130/80, Incorporates diet changes & exercise for blood pressure control by DC and Other additional outcomes/goals Interventions/plan: Instruct on optimal blood pressure, hypertension & medications, Instruct on effects of sodium, alcohol, stress, exercise &hypertension and Other additional plan/interventions 30 day Reassessments:: Met Reassessment Notes & Comments:: Pt's BP's are within AHA normal limits Tobacco Cessation Referral Smoking Cessation Referral:: No Individual Education/Counseling:: No Education Schedule Given:: Yes Core - 90 Day Assessment Hypertension Citizen Of [place] Heart Association Hypertension Guidelines Reassessment Notes & Comments:: Pt's BP's are within AHA normal limits Core - 60-Day Assessment Hypertension Resting Blood Pressure:: 98/58 Citizen Of [place] Heart Association Hypertension Guidelines Psychosocial - 30-Day Assess Referral to Behavioral Health PS - Interventions: Yes: Attend Stress Management Classes Psychosocial - 60-Day Assess Referral to Behavioral Health PS - Interventions: Yes: Attend Stress Management Classes Psychosocial - 90-Day Assess Referral to Behavioral Health PS - Interventions: Yes: Attend Stress Management Classes Psychosocial - Final Assessmen VIsit Date of Eval: 01/19/25 Session #:: 20 History of Emotional Disorders: Depression (Pt sees a counselor 1 day a week and is doing well) Psychosocial Test Tool Used:: PHQ-9 Questionnaire phq-9 Severity See PHQ-9 Score: 0 Referral to Behavioral Health PS - Interventions: Yes: Attend Stress Management Classes Outcomes/Goals: See list Psychosocial Outcomes/Goals:: ID's personal stressors & 2 strategies to manage stress by discharge and Other Additional outcome/goals: Intervention/Plan: See List Interventions/Plan:: Assess stressors,coping strategies & signs of derpression on admission, Instruct/assist pt to develop coping & personal stress Mgt strategies, Refer to Behavioral Health if appropriate, Refer to Physician if appropriate, Instruct patient to recognize signs & symptoms of depression, Instruct patient to recog and Other additional plan/intervention 30-day Reassessments: 30 day Reassessments:: Met Reassessment Notes & Comments:: Pt attended stress management class and sees a counselor. Nutrition - 90-Day Assessment Weight Mgt (Other Care) Height: 5 ft 5 in Weight:: 249 lb 8 oz BMI: 41.5 Nutrition - Final Assessment Program Goals Patient has diagnosis of Hyperlipidemia (ICD E78)?: No Visit Date of Assessment:: 01/19/25 Session #:: 20 (nutrition score of 2) Cholesterol/Lipids (Other Core Measures) Determine presence & major risk factors that modify LDL goal: Cigarette smoking, Hypertension or hypertensive medication, Low HDL cholesterol <40 mg/dL*, Family history of premature CHD in Male < 55 years: female <65 yearsFa and Age men > 45 years; women >/= 55 years Outcomes/Goals: Pt IDs own risk factors & lifestyle modifications by Session 10, Verbalizes symptoms of angina & response by session 3., Pt independently manages and Other Additional Outcomes/Goals: Intervention/Plan: Advocate for lipid panel cholesterol medication if applicable, Instruct on personal lipid levels & lipid goals/NCEP guidelines, Instruct on cholesterol and Other additional plan/int Diabetes (Other Core Measures) Diabetes Type: Not Applicable Weight Mgt (Other Care) Height: 5 ft 5 in Weight:: 249 lb 8 oz BMI: 41.5 Diagnosis Overweight/Obesity BMI> 30% ICD-10 E66: Yes Diagnosis High BMI/Morbid Obesity BMI> 35% ICD-10 Z68: Yes Outcomes/Goals: Pt sets, maintains & shows weight loss goal & trend during rehab and Other additional outcomes/goals Intervention/Plan: Instruct on ideal BMI & set weight loss goal w/patient, Assist pt to ID & incorporate diet changes for weight loss by S9, Refer to Structured Weight Loss program as appropriate, Encourage goal of using 250-300dcal per session for weight loss and Other additional plan/interventions Healthy Eating Habits Will attend diet classes:: Yes Outcomes/Goals:: Consume diet rich in vegs,fruits,whole grain/high fiber,fish,lean meat, Limit sat/trans fats,cholesterol & added salts & sugars and Other additional outcome/goals: Intervention/Plan:: Assess current eating habits and Other Additional plan/interventions 30-day Reassessments:: Met Reassessment Notes & Comments:: Pt has attended nutrition class and understands the benefits of a low sodium heart healthy diet. Education Gave educational materials for:: Signs & symptoms of hypoglycemia, Signs & symptoms of hyperglycemia, Relate diabetes to coronary artery disease and Healthy eating
[2025-01-19 08:46] VITALS: BP 98/58; BMI 41.5
== END 2025-01-19 23:59 ==
LOC: CR 13:00
PROVIDERS: PCP Family Medicine; Referring Provider Thoracic Surgery (Cardiothoracic Vascular Surgery); Visit Provider Thoracic Surgery (Cardiothoracic Vascular Surgery)
DX: Z48.812 Encounter for surgical aftercare following surgery on the circulatory system (principal); Z95.2 Presence of prosthetic heart valve
CPT/HCPCS: 93798